=== PATIENT | male | born 1930 | race Caucasian/White ===

== ENCOUNTER 2017-04-24 08:40 | Emergency (ER) | payer MEDICARE, BC ==
[2014-07-23 11:36] VITALS: BMI 21.2
[~2017-04-24 08:40] MED LIST: ASCORBIC ACID500 MG PO; ASPIRIN EC81 M1 PO; COMBIGAN OPHT DR5 ML EACH EYE; COZAAR25 MG PO; ENULOSE10 G/15 ML PO; FOLIC ACID PO; HYDROCODON-ACE1 EAC7 PO; MIRALAX17 GM PO; NEXIUM40 MG PO; NIFEDIPINE ER30 MG PO; NITROSTAT0.4 MG SL; PRILOSEC PO; ROBAXIN-750750 MG PO; SAW PALMETTO PO; SYSTANE 0.3-0.4%5 ML EACH EYE; TRAVATAN Z2.5 ML EACH EYE; VITAMIN B COMPL1 TAB PO; VITAMIN D3400 UNI1 PO; ZOCOR10 MG PO; ZYRTEC10 MG PO
== END 2017-04-24 11:18 | disposition home or self-care (01) ==
LOC: D.ER 08:40
DX: H11.001 Unspecified pterygium of right eye (principal); H57.13 Ocular pain, bilateral

== ENCOUNTER 2017-12-06 11:09 | Inpatient (IN) | payer MEDICARE, BC ==
[~2017-12-06] VITALS: Ht 170.2 cm; Wt 57.7 kg
--- NOTE | ~2017-12-06 | MORECARE ---
CASE MANAGEMENT DISCHARGE SUMMARY PATIENT: IDRIS BERNAL UNIT: [id number] ADM DATE: 12/06/17 AGE: 87 : 30 SEX: M ROOM/BED: D.210 AUTHOR: CATINA ANDERSON PHYSICIAN: REFERRING PHYSICIAN: MARK PAT MD DATE OF SERVICE: 12/09/17 Discharge Plan Patient Name: IDRIS BERNAL [facility] [facility] 1930 Planned Disposition: Home Anticipated Discharge Date: 12/07/17 Discharge Date: 12/07/2017 Expected LOS: 1 Initial Reviewer: [email or web address] Initial Review Date: 12/09/2017 Generated: 12/09/17 8:30 am Patient Name: IDRIS BERNAL Page [id number] at 0730 All edits/amendments must be made on the electronic document DICTATION DATE: 12/09/17729 MANAGER CITY: [place] 12/09/17729 RPT#: [id number] DC DATE:12/07/17 STATUS: DIS IN [facility] [address] [facility] [address] END OF REPORT
[2017-12-06] MEDS ORDERED: BENTYL10 MG PO (12:14)
[2017-12-06 12:35] LABS: BASOPHILS 0.2 % (0-2); EOSINOPHILS 0.8 % (0-7); HEMATOCRIT 39.9 % (42.0-54.0); HEMOGLOBIN 13.6 g/dL (13.5-17.5); IMMATURE GRANULOCYTES 0.1 % (0-5); LYMPHOCYTES 8.7 % (15-50); MCH 32.8 pg (26.0-34.0); MCHC 34.1 g/dL (31.0-37.0); MCV 96.1 fL (80.0-100.0); MONOCYTES 8.2 % (2-11); PLATELET COUNT 237 10x3/uL (130-400); RBC 4.15 10x6/uL (4.20-6.10); RDW 13.1 % (11.5-14.5); WBC 8.8 10x3/uL (4.8-10.8)
[2017-12-06 12:50] LABS: INR 0.92 (0.85-1.17)
[2017-12-06 12:53] LABS: ALBUMIN 3.6 g/dL (3.4-5.0); ALKALINE PHOSPHATASE 116 U/L (46-116); ALT (SGPT) 25 U/L (10-68); BILIRUBIN - TOTAL 0.44 mg/dL (0.2-1.3); CALC OSMOLALITY 272 mosm/kg (275-300); CALCIUM 9.1 mg/dL (8.5-10.1); CARBON DIOXIDE 32.2 mmol/L (21.0-32.0); CHLORIDE - SERUM 96 mmol/L (98-107); CREATININE - SERUM 0.8 mg/dL (0.6-1.3); GLUCOSE 131 mg/dL (74-106); POTASSIUM - SERUM 4.2 mmol/L (3.5-5.1); PRO BNP 740 pg/mL (0-450); PROTEIN - SERUM 7.7 g/dL (6.4-8.2); SODIUM 134 mmol/L (136-145); UREA NITROGEN 22 mg/dL (7-18); eGFR NON AFRICAN AMERICAN > 90 mL/min (90-120)
[2017-12-06 13:42] VITALS: BMI 19.9
[2017-12-06 16:11] VITALS: BP 125/56
[2017-12-06 16:33] VITALS: Ht 170.2 cm; Wt 57.7 kg
[2017-12-06 18:16] VITALS: BP 125/56
[2017-12-06 19:48] LABS: APPEARANCE CLEAR (CLEAR); BILIRUBIN NEGATIVE (NEGATIVE); COLOR YELLOW (YELLOW); GLUCOSE NEGATIVE (NEGATIVE); KETONE NEGATIVE (NEGATIVE); NITRITE NEGATIVE (NEGATIVE); PROTEIN NEGATIVE (NEGATIVE); SPECIFIC GRAVITY 1.015 (1.005-1.020); UROBILINOGEN NORMAL (NORMAL)
[2017-12-06 20:00] VITALS: BP 122/69
[2017-12-07] VITALS: BP 113/48
[2017-12-07 04:00] VITALS: BP 115/49
[2017-12-07 05:16] LABS: BASOPHILS 0.6 % (0-2); EOSINOPHILS 2.5 % (0-7); HEMATOCRIT 34.6 % (42.0-54.0); HEMOGLOBIN 11.7 g/dL (13.5-17.5); IMMATURE GRANULOCYTES 0.3 % (0-5); LYMPHOCYTES 11.8 % (15-50); MCH 32.1 pg (26.0-34.0); MCHC 33.8 g/dL (31.0-37.0); MCV 95.1 fL (80.0-100.0); MEAN PLATELET VOLUME 9.3 fL (7.4-10.4); MONOCYTES 11.9 % (2-11); NEUTROPHILS 72.9 % (40-80); PLATELET COUNT 219 10x3/uL (130-400); RBC 3.64 10x6/uL (4.20-6.10); RDW 13.1 % (11.5-14.5); WBC 7.1 10x3/uL (4.8-10.8)
[2017-12-07 05:35] LABS: CALC OSMOLALITY 271 mosm/kg (275-300); CALCIUM 8.5 mg/dL (8.5-10.1); CARBON DIOXIDE 30.6 mmol/L (21.0-32.0); CHLORIDE - SERUM 100 mmol/L (98-107); CREATININE - SERUM 0.7 mg/dL (0.6-1.3); GLUCOSE 108 mg/dL (74-106); POTASSIUM - SERUM 3.8 mmol/L (3.5-5.1); SODIUM 135 mmol/L (136-145); eGFR NON AFRICAN AMERICAN > 90 mL/min (90-120)
[2017-12-07 05:56] LABS: UREA NITROGEN 16 mg/dL (7-18)
[2017-12-07 08:35] VITALS: BP 134/59
[2017-12-07 10:42] VITALS: BP 129/61
[2017-12-07 14:56] VITALS: BP 125/57
[2017-12-07] MEDS ORDERED: CLOTRIM ANTIFUN15 GM TOPICAL (15:23)
== END 2017-12-07 18:46 | disposition home or self-care (01) | DRG 607 ==
LOC: D.M2 11:09 → D.SDCHOLD 11:09 → D.M2 11:13
PROVIDERS: Family Medicine; Internal Medicine Nephrology
DX: B35.3 Tinea pedis (principal); L03.116 Cellulitis of left lower limb; L03.115 Cellulitis of right lower limb; I73.9 Peripheral vascular disease, unspecified; I10 Essential (primary) hypertension; E78.5 Hyperlipidemia, unspecified; Z85.118 Personal history of other malignant neoplasm of bronchus and lung; I73.00 Raynaud's syndrome without gangrene

== ENCOUNTER → 2018-04-23 08:00 | Outpatient (CLI) | payer MEDICARE, BC ==
[2017-12-06 16:33] VITALS: BMI 19.9
[~2018-04-23 08:00] MED LIST changes: +BENTYL10 MG PO; +CLOTRIM ANTIFUN15 GM TOPICAL
== END | disposition home or self-care (01) ==
LOC: D.MAMMO 08:00
PROVIDERS: ATTEND Nurse Practitioner Family
DX: N63.42 Unspecified lump in left breast, subareolar (principal)

== ENCOUNTER 2018-05-06 14:34 | Inpatient (IN) | payer MEDICARE, BC ==
[~2018-05-06] VITALS: Ht 170.2 cm; Wt 54.1 kg
[2018-05-06 15:17] LABS: BASOPHILS 0.2 % (0-2); EOSINOPHILS 0.6 % (0-7); HEMATOCRIT 34.9 % (42.0-54.0); HEMOGLOBIN 11.3 g/dL (13.5-17.5); IMMATURE GRANULOCYTES 0.4 % (0-5); LYMPHOCYTES 3.8 % (15-50); MCH 31.9 pg (26.0-34.0); MCHC 32.4 g/dL (31.0-37.0); MCV 98.6 fL (80.0-100.0); MEAN PLATELET VOLUME 8.7 fL (7.4-10.4); MONOCYTES 9.1 % (2-11); NEUTROPHILS 85.9 % (40-80); RBC 3.54 10x6/uL (4.20-6.10); RDW 13.2 % (11.5-14.5); WBC 11.2 10x3/uL (4.8-10.8)
[2018-05-06 15:37] VITALS: BP 153/79
[2018-05-06 15:46] LABS: ALBUMIN 2.3 g/dL (3.4-5.0); ANION GAP 4.3 mmol/L (8-16); BILIRUBIN - TOTAL 0.25 mg/dL (0.2-1.3); CALCIUM 8.8 mg/dL (8.5-10.1); CARBON DIOXIDE 38.2 mmol/L (21.0-32.0); CREATININE - SERUM 1.3 mg/dL (0.6-1.3); POTASSIUM - SERUM 4.5 mmol/L (3.5-5.1); PROTEIN - SERUM 6.8 g/dL (6.4-8.2); TROPONIN-I 0.025 ng/mL (0.000-0.060)
[2018-05-06 15:54] LABS: PLATELET COUNT 413 10x3/uL (130-400)
[2018-05-06 16:37] VITALS: BP 136/52
[2018-05-06 16:47] LABS: APPEARANCE CLEAR (CLEAR); BILIRUBIN NEGATIVE (NEGATIVE); COLOR YELLOW (YELLOW); GLUCOSE NEGATIVE (NEGATIVE); KETONE NEGATIVE (NEGATIVE); NITRITE NEGATIVE (NEGATIVE); PROTEIN TRACE mg/dL (NEGATIVE); UROBILINOGEN NORMAL (NORMAL)
[2018-05-06 16:55] LABS: BACTERIA MODERATE /hpf (NONE SEEN); RED CELLS - URINE OCC /hpf (0-5); WHITE CELLS - URINE 0-5 /hpf (0-5)
[2018-05-06 17:37] VITALS: BP 141/55
--- NOTE | 2018-05-06 19:00 | NUR ---
ASSUMED CARE AT THIS TIME. REPORT CALLED TO FLOOR BY PREVIOUS NURSE. IN REPORT WAS TOLD WAITING ON BED TO BE CLEANED.
--- NOTE | 2018-05-06 19:28 | NUR ---
PT AMBULATED TO RESTROOM WITH CAREGIVER WHO WS AT BEDSIDE. PT AMBULATES WITH CANE. DENIES PAIN OR NEEDS AT THIS TIME.
--- NOTE | 2018-05-06 20:13 | NUR ---
ADMITED AT THIS TIME BED PUT IN LOW POSITION SRX2 AND CALL LIGHT PROVIDED PT REFUSING TO REMOVE CLOTHING AT THIS TME IV SL TO RT WRIST LCTA SKIN NOT FULLY OBSERVED. FAMILY IS WITH PT AT THIOS TIME
--- NOTE | 2018-05-06 21:42 | NUR ---
96.5 136/58 76 20 97% ON RA...RESP NONLABORED
[2018-05-06 23:55] VITALS: BP 136/58
[2018-05-07 03:36] VITALS: BP 126/70; BMI 22.7
[2018-05-07 03:55] VITALS: BP 150/74
--- NOTE | 2018-05-07 04:20 | NUR ---
PATIENT RESTING COMFORTABLY IN BED. RESPIRATIONS ARE EVEN AND UNLABORED. NO S/S OF DISTRESS. NO C/O PAIN. CALL LIGHT WITHIN REACH. WILL CPOC.
[2018-05-07 06:51] LABS: BASOPHILS 0.1 % (0-2); EOSINOPHILS 0.9 % (0-7); HEMATOCRIT 29.2 % (42.0-54.0); HEMOGLOBIN 9.5 g/dL (13.5-17.5); IMMATURE GRANULOCYTES 0.5 % (0-5); LYMPHOCYTES 5.8 % (15-50); MCH 31.8 pg (26.0-34.0); MCHC 32.5 g/dL (31.0-37.0); MCV 97.7 fL (80.0-100.0); MEAN PLATELET VOLUME 8.7 fL (7.4-10.4); MONOCYTES 7.9 % (2-11); NEUTROPHILS 84.8 % (40-80); PLATELET COUNT 354 10x3/uL (130-400); RBC 2.99 10x6/uL (4.20-6.10); WBC 9.9 10x3/uL (4.8-10.8)
[2018-05-07 07:12] LABS: ALBUMIN 1.8 g/dL (3.4-5.0); ALKALINE PHOSPHATASE 80 U/L (46-116); BILIRUBIN - TOTAL 0.27 mg/dL (0.2-1.3); CARBON DIOXIDE 33.7 mmol/L (21.0-32.0); CHLORIDE - SERUM 100 mmol/L (98-107); PROTEIN - SERUM 5.5 g/dL (6.4-8.2); SODIUM 137 mmol/L (136-145); eGFR NON AFRICAN AMERICAN 75 mL/min (90-120)
[2018-05-07 07:13] LABS: ALT (SGPT) 15 U/L (10-68); CALC OSMOLALITY 276 mosm/kg (275-300); GLUCOSE 105 mg/dL (74-106); UREA NITROGEN 22 mg/dL (7-18)
--- NOTE | 2018-05-07 07:48 | NUR ---
REPORT RECEIVED. WILL CONTINUE WITH POC. PT CURRENTLY LYING SEMI FOWLERS. CALL LIGHT W/I REACH. PT IS AAO BUT ORUTSARARMIUT. RR EVEN AND UNLABORED ON RA. NS INFUSING @100ML/HR VIA R.FOR PIV. PT DENIES ANY NEEDS AT THIS TIME. NO S/S OF DISTRESS NOTED. WILL CTM.
--- NOTE | 2018-05-07 10:19 | NUR ---
AM MEDICATIONS ADMINISTERED. PT ASSISTED WITH BREAKFAST. FAMILY AT BEDSIDE. PT DENIES ANY NEEDS. NO S/S OF DISTRESS NOTED. WILL CTM.
[2018-05-07 10:23] VITALS: BP 138/71
--- NOTE | 2018-05-07 12:08 | NUR ---
PREVIOUS PIV INFILTRATED. RESITED PIV TO THE LEFT FOREARM 22GA X1 ATTEMPT. PT TOLERATED WELL. FLUSHED WITH 10CC NS TO CONFIRM PATENCY. PT COMPLAINS OF N/V. WILL ADMINISTER ZOFRAN. WILL CTM. REMOVED PREVIOUS PIV WITH CATHETER TIP FULLY INTACT.
--- NOTE | 2018-05-07 12:21 | NUR ---
PT ASSISTED TO BATHROOM WHERE PT HAD LARGE EPISODE OF DIARRHEA. PT ASSISTED BACK TO BED. WILL CTM.
[2018-05-07 12:24] LABS: % SATURATION 56 % (15-55); IRON 84 ug/dl (35-150); TOTAL IRON BIND CAPACITY 150 ug/dl (260-445); UNSAT IRON BIND CAPACITY 66 ug/dl (150-375)
[2018-05-07 13:59] VITALS: Ht 170.2 cm; Wt 54.1 kg
[2018-05-07 14:36] VITALS: BP 135/81
--- NOTE | 2018-05-07 14:41 | NUR ---
PT ASSISTED TO AND FROM BATHROOM. PT CLEANED AND NEW BRIEF APPLIED. NOTICED STAGE 2 BREAKDOWN ON SACRUM. SMALL 1X1 SKIN TEAR ON SACRUM. NO DRAINAGE. NONBLANCHABLE. CLEANED WOUND WITH CLEANSER, APPLIED BUTT PASTE, AND APPLIED SMALL SACRAL DRESSING. PT NOW LYING SEMI FOWLERS. CALL LIGHT W/I REACH. FAMILY AT BEDSIDE. WILL CTM.
--- NOTE | 2018-05-07 15:10 | NUR ---
I have reviewed this patient and I concur with the Shift Assessment completed by the Licensed Practical Nurse today this shift.
[2018-05-07 16:59] VITALS: BP 137/76
--- NOTE | 2018-05-07 19:10 | NUR ---
AT REST WITH EYES CLOSED RESIDENT IS STILL FULLY DRESSED IN STREET CLOTHES. LCTA NO WHEEZES PT IS ON RA. TELEMETRY CHECKED AND SR AT THIS TIMESR X2 BEED LOW WITH CALL LIGHT IN REACH
[2018-05-07 20:32] VITALS: BP 101/47
[2018-05-08 00:04] VITALS: BP 107/42
[2018-05-08 05:32] LABS: BASOPHILS 0.1 % (0-2); EOSINOPHILS 0.8 % (0-7); HEMATOCRIT 30.6 % (42.0-54.0); HEMOGLOBIN 9.9 g/dL (13.5-17.5); IMMATURE GRANULOCYTES 0.8 % (0-5); LYMPHOCYTES 7.5 % (15-50); MCH 31.2 pg (26.0-34.0); MCHC 32.4 g/dL (31.0-37.0); MCV 96.5 fL (80.0-100.0); MEAN PLATELET VOLUME 8.5 fL (7.4-10.4); MONOCYTES 7.3 % (2-11); NEUTROPHILS 83.5 % (40-80); PLATELET COUNT 297 10x3/uL (130-400); RBC 3.17 10x6/uL (4.20-6.10)
[2018-05-08 05:49] LABS: CALC OSMOLALITY 272 mosm/kg (275-300); CALCIUM 7.9 mg/dL (8.5-10.1); CARBON DIOXIDE 31.3 mmol/L (21.0-32.0); CHLORIDE - SERUM 100 mmol/L (98-107); GLUCOSE 109 mg/dL (74-106); POTASSIUM - SERUM 4.3 mmol/L (3.5-5.1); SODIUM 135 mmol/L (136-145); UREA NITROGEN 18 mg/dL (7-18); eGFR NON AFRICAN AMERICAN 75 mL/min (90-120)
[2018-05-08 06:13] VITALS: BP 121/74
--- NOTE | 2018-05-08 07:30 | NUR ---
A/A/OX2 TO PERSON AND PLACE. DENIES ANY PAIN OR DISCOMFORT AND NO REQUESTS VOICED. ASSESSMENT COMPLETED. BED IN LOW POSITION WITH WHEELS LOCKED. SIDERAILS UP X 2 AND CALL LIGHT IN REACH. WILL CONTINUE POC.
[2018-05-08 07:53] VITALS: BP 103/41
[2018-05-08 10:22] LABS: FOLATE (FOLIC ACID) - SERUM 18.4 ng/mL (>3.0)
[2018-05-08 11:18] VITALS: BP 111/59
[2018-05-08 15:44] VITALS: BP 120/59
--- NOTE | 2018-05-08 18:11 | NUR ---
AGREE WITH INVESTMENT ACCOUNTING CLERK ASSESSMENT
--- NOTE | 2018-05-08 19:15 | NUR ---
AT REST WITH EYS CLOSED BUT EASILY AROUSES. BED LOW WITH BED ALARM ON. SRX2 AND CALL LIGHT IS IN REACH. IV TO LEFT FA WITH NS AT 100...NO REDNESS OR EDEMA..FULL BODY EXAM NOT DOWN
[2018-05-08 20:00] VITALS: BP 93/44
--- NOTE | 2018-05-08 22:15 | NUR ---
ASSISTED UP TO THE REST ROOM. TOLERATED WELL BACK TO BED WIHOUT INCIDENT
[2018-05-09] VITALS: BP 94/48
[2018-05-09 04:00] VITALS: BP 90/44
[2018-05-09 06:24] LABS: BASOPHILS 0.1 % (0-2); EOSINOPHILS 0.9 % (0-7); HEMATOCRIT 30.9 % (42.0-54.0); HEMOGLOBIN 10.1 g/dL (13.5-17.5); IMMATURE GRANULOCYTES 0.6 % (0-5); LYMPHOCYTES 5.2 % (15-50); MCH 31.7 pg (26.0-34.0); MCHC 32.7 g/dL (31.0-37.0); MCV 96.9 fL (80.0-100.0); MEAN PLATELET VOLUME 8.7 fL (7.4-10.4); MONOCYTES 7.5 % (2-11); NEUTROPHILS 85.7 % (40-80); PLATELET COUNT 339 10x3/uL (130-400); RBC 3.19 10x6/uL (4.20-6.10); RDW 13.1 % (11.5-14.5); WBC 11.8 10x3/uL (4.8-10.8)
[2018-05-09 06:59] LABS: ANION GAP 6.2 mmol/L (8-16); CALCIUM 7.8 mg/dL (8.5-10.1); CARBON DIOXIDE 31.2 mmol/L (21.0-32.0); CREATININE - SERUM 1.1 mg/dL (0.6-1.3); POTASSIUM - SERUM 4.4 mmol/L (3.5-5.1)
[2018-05-09 08:00] VITALS: BP 120/72
[2018-05-09 12:00] VITALS: BP 112/55
--- NOTE | 2018-05-09 13:40 | NUR ---
Nutrition follow-up: Diet: Regular PO intake ~25% average of last 3 meals Labs reviewed Wt: 112 Pt on Megace PO intake continues to be poor; may need to consider PEG tube placement and nutrition support started. RDN following.
--- NOTE | 2018-05-09 14:32 | NUR ---
Rehab Prescreening Consult recieved and the chart was reviewed. He has ambulated 250 feet with PT therefore he is to high level for the ARU. Discussed with the CM Brayan Garcia. Caitlin Patel RN Clinical Liaison, Rehab
--- NOTE | 2018-05-09 15:49 | MORECARE ---
CASE MANAGEMENT DISCHARGE SUMMARY PATIENT: IDRIS BERNAL UNIT: [id number] ADM DATE: 05/06/18 AGE: 88 : 30 SEX: M ROOM/BED: D.2137 AUTHOR: CATINA ANDERSON PHYSICIAN: REFERRING PHYSICIAN: EDI ANN MD DATE OF SERVICE: 05/09/18 Discharge Plan Patient Name: IDRIS BERNAL Facility: [facility]:[place] : 1930 Planned Disposition: Home with Home Health Anticipated Discharge Date: Discharge Date: Expected LOS: Initial Reviewer: [email or web address] Initial Review Date: 05/09/2018 Generated: 05/09/18 4:48 pm DCPIA - Discharge Planning Initial Assessment Updated by [email or web address]: Gurvinder Garcia on 05/09/18 3:43 pm * Is the patient Alert and Oriented? Yes * How many steps to enter\exit or inside your home? * PCP DR. PAT * Pharmacy [facility] * Preadmission Environment Home Alone * ADLs Partial Dependent * Partial ADLs (Assistance needed) Bathing * Equipment Cane Walker * Other Equipment NO MEDICAL EQUIPMENT PROVIDER PREFERENCE * List name and contact numbers for known caregivers / representatives who currently or will assist patient after discharge: MENDY GEORGES, KAILEY CAUSEY, * Verbal permission to speak to the caregivers and representatives has been obtained from the patient. Yes * Community resources currently utilized Private Duty Care * Please name any agencies selected above. [facility], AT LEAST THREE DAYS PER WEEK * Additional services required to return to the preadmission environment? Yes * Can the patient safely return to the preadmission environment? Yes * Has this patient been hospitalized within the prior 30 days at any hospital? No Patient Name: IDRIS BERNAL Page [id number] at 1540 All edits/amendments must be made on the electronic document DICTATION DATE: 05/09/181547 MOTORCYCLE ENGINE ASSEMBLER: [place] 05/09/18 1548 RPT#: [id number] DC DATE: STATUS: ADM IN [facility] [address] [place] [address] END OF REPORT
--- NOTE | 2018-05-09 16:08 | MORECARE ---
CASE MANAGEMENT DISCHARGE SUMMARY PATIENT: IDRIS BERNAL UNIT: [id number] ADM DATE: 05/06/18 AGE: 88 : 30 SEX: M ROOM/BED: D.8439 AUTHOR: MONICA,DOC PHYSICIAN: REFERRING PHYSICIAN: EDI ANN MD DATE OF SERVICE: 05/09/18 Discharge Plan Patient Name: IDRIS BERNAL Facility: [facility]:[place] : 1930 Planned Disposition: Home with Home Health Anticipated Discharge Date: Discharge Date: Expected LOS: Initial Reviewer: [email or web address] Initial Review Date: 05/09/2018 Generated: 05/09/18 5:08 pm Comments DCP- Discharge Planning Updated by [email or web address]: Gurvinder Garcia on 05/09/18 3:[address] Patient Name: IDRIS BERNAL Admission Status: ER Accout number: [id number] Admission Date: 05-06-2018 : 1930 Admission Diagnosis:SHORTNESS OF BREATH Attending: EDI ANN Current LOS: 3 Anticipated DC Date: Planned Disposition: Home with Home Health OR RESIDENTIAL FACILITY Primary Insurance: MEDICARE A & B PLANNED EXTERNAL PROVIDER: TO BE DETERMINED Discharge Planning Comments: CM RECEIVED INPATIENT REHAB PRESCREENING ORDER, SPOKE TO VANDANA OF INPATIENT REHAB WHO INFORMED CM THAT PT IS TOO HIGH FUNCTIONING AND THEY WILL NOT ACCEPT. CM MET WITH PT IN ROOM TO DISCUSS DISCHARGE PLANNING AND NEEDS. PT REPORTS LIVING AT HOME ALONE AND INDEPENDENTLY EXCEPT FOR BATHING FOR WHICH HE HAS CAREGIVERS THREE DAYS PER WEEK THAT ARE PAID PRIVATELY. PT HAS WALKER AND CANE WITH NO MEDICAL EQUIPMENT PROVIDER PREFERNENCE. CM DISCUSSED AVAILABILITY OF HOME HEALTH, RESIDENTIAL REHAB SERVICES AND MEDICAL EQUIPMENT. PT REPORTS HE WANTS TO GO HOME BUT MAY CONSIDER RESIDENTIAL HE REPORTS STILL BEING TOO WEAK TODAY TO GO HOME. PT WANTS CM TO TALK TO MENDY, HIS SON AND THEY WILL DISCUSS REHAB NEEDS AND LET CM KNOW. PT REPORTS HIS SON OR FRIEND WILL PICK HIM UP FOR DISCHARGE HOME. IMPORTANT MESSAGE FROM MEDICARE PROVIDED AND EXPLAINED. CM PROVIDED AND DISCUSSED PROVIDER LISTINGS FOR RESIDENTIAL FACILITIES AND HOME HEALTH. CM CALLED MENDY BERNAL AT [phone], SPOKE TO MARCELLA MAYEN WHO INFORMED CM THAT HE THINKS PT WILL NEED REHAB AND WILL HAVE MENDY CALL CM AND THEY WILL PROBABLY BE BACK TO HOSPITAL THIS AFTERNOON TO DISCUSS DISCHARGE NEEDS AND REHAB. CM WAITING PT AND FAMILY TO DECIDE ON RESIDENTIAL REHAB OR HOME HEALTH SERVICES. PT DOES NOT QUALIFY FOR INPATIENT REHAB SERVICES. Ceramic Painter: Gurvinder Garcia DCPIA - Discharge Planning Initial Assessment Updated by ZAN: Gurvinder Garcia on 05/09/18 3:43 pm * Is the patient Alert and Oriented? Yes * How many steps to enter\exit or inside your home? * PCP DR. PAT * Pharmacy [facility] ON [address] * Preadmission Environment Home Alone * ADLs Partial Dependent * Partial ADLs (Assistance needed) Bathing * Equipment Cane Walker * Other Equipment NO MEDICAL EQUIPMENT PROVIDER PREFERENCE * List name and contact numbers for known caregivers / representatives who currently or will assist patient after discharge: MENDY GEORGES, KAILEY CAUSEY, * Verbal permission to speak to the caregivers and representatives has been obtained from the patient. Yes * Community resources currently utilized Private Duty Care * Please name any agencies selected above. [facility], AT LEAST THREE DAYS PER WEEK * Additional services required to return to the preadmission environment? Yes * Can the patient safely return to the preadmission environment? Yes * Has this patient been hospitalized within the prior 30 days at any hospital? No Coverage Notice Reviewer: [id number] - Gurvinder Garcia Notice Issued Date-Time: 05/09/2018 15:15 Notice Type: IM Discharge Notice Notice Delivered To: Patient Relationship to Patient: Education Administrator Name: Delivery Method: HAND - Hand Delivered Margo Days: Prior Verbal Notification: Recipient Understood Notice: Yes Recipient Signature: Yes Med Rec Note Co-signed by Attending: Coverage Notice Comment: Last DP export: 05/09/18 2:49 p Patient Name: IDRIS BERNAL Page [id number] at 1608 All edits/amendments must be made on the electronic document DICTATION DATE: 05/09/181607 NEUROSURGERY PHYSICIAN: [place] 05/09/181607 RPT#: [id number] DC DATE: STATUS: ADM IN [facility] [address] [place] [address] END OF REPORT
--- NOTE | 2018-05-09 16:31 | MORECARE ---
CASE MANAGEMENT DISCHARGE SUMMARY PATIENT: IDRIS BERNAL UNIT: [id number] ADM DATE: 05/06/18 AGE: 88 : 30 SEX: M ROOM/BED: D.8835 AUTHOR: MONICA,DOC PHYSICIAN: REFERRING PHYSICIAN: EDI ANN MD DATE OF SERVICE: 05/09/18 Discharge Plan Patient Name: IDRIS BERNAL Facility: [facility]:[place] : 1930 Planned Disposition: Alf Facility Anticipated Discharge Date: Discharge Date: Expected LOS: Initial Reviewer: [email or web address] Initial Review Date: 05/09/2018 Generated: 05/09/18 5:30 pm Comments DCP- Discharge Planning Updated by [email or web address]: Gurvinder Garcia on 05/09/18 3:[address] Patient Name: IDRIS BERNAL Admission Status: ER Accout number: [id number] Admission Date: 05-06-2018 : 1930 Admission Diagnosis:SHORTNESS OF BREATH Attending: EDI ANN Current LOS: 3 Anticipated DC Date: Planned Disposition: Home with Home Health OR [facility] FACILITY Primary Insurance: MEDICARE A & B PLANNED EXTERNAL PROVIDER: TO BE DETERMINED Discharge Planning Comments: CM RECEIVED INPATIENT REHAB PRESCREENING ORDER, SPOKE TO VANDANA OF INPATIENT REHAB WHO INFORMED CM THAT PT IS TOO HIGH FUNCTIONING AND THEY WILL NOT ACCEPT. CM MET WITH PT IN ROOM TO DISCUSS DISCHARGE PLANNING AND NEEDS. PT REPORTS LIVING AT HOME ALONE AND INDEPENDENTLY EXCEPT FOR BATHING FOR WHICH HE HAS CAREGIVERS THREE DAYS PER WEEK THAT ARE PAID PRIVATELY. PT HAS WALKER AND CANE WITH NO MEDICAL EQUIPMENT PROVIDER PREFERNENCE. CM DISCUSSED AVAILABILITY OF HOME HEALTH, [facility] REHAB SERVICES AND MEDICAL EQUIPMENT. PT REPORTS HE WANTS TO GO HOME BUT MAY CONSIDER [facility] HE REPORTS STILL BEING TOO WEAK TODAY TO GO HOME. PT WANTS CM TO TALK TO MENDY, HIS SON AND THEY WILL DISCUSS REHAB NEEDS AND LET CM KNOW. PT REPORTS HIS SON OR FRIEND WILL PICK HIM UP FOR DISCHARGE HOME. IMPORTANT MESSAGE FROM MEDICARE PROVIDED AND EXPLAINED. CM PROVIDED AND DISCUSSED PROVIDER LISTINGS FOR [facility] FACILITIES AND HOME HEALTH. CM CALLED MENDY BERNAL AT [phone], SPOKE TO MARCELLA MAYEN WHO INFORMED CM THAT HE THINKS PT WILL NEED REHAB AND WILL HAVE MENDY CALL CM AND THEY WILL PROBABLY BE BACK TO HOSPITAL THIS AFTERNOON TO DISCUSS DISCHARGE NEEDS AND REHAB. CM WAITING PT AND FAMILY TO DECIDE ON [facility] REHAB OR HOME HEALTH SERVICES. PT DOES NOT QUALIFY FOR INPATIENT REHAB SERVICES. Control Systems Engineer: Gurvinder Garcia DCPIA - Discharge Planning Initial Assessment Updated by [email or web address]: Gurvinder Garcia on 05/09/18 3:43 pm * Is the patient Alert and Oriented? Yes * How many steps to enter\exit or inside your home? * PCP DR. PAT * Pharmacy [facility] ON [address] * Preadmission Environment Home Alone * ADLs Partial Dependent * Partial ADLs (Assistance needed) Bathing * Equipment Cane Walker * Other Equipment NO MEDICAL EQUIPMENT PROVIDER PREFERENCE * List name and contact numbers for known caregivers / representatives who currently or will assist patient after discharge: MENDY GEORGES, KAILEY CAUSEY, * Verbal permission to speak to the caregivers and representatives has been obtained from the patient. Yes * Community resources currently utilized Private Duty Care * Please name any agencies selected above. [facility], AT LEAST THREE DAYS PER WEEK * Additional services required to return to the preadmission environment? Yes * Can the patient safely return to the preadmission environment? Yes * Has this patient been hospitalized within the prior 30 days at any hospital? No External Providers External Provider: [facility] Next Contact Date: 05/09/2018 Service Request Date: Service Type: Resolution: Reviewer: Comments: Coverage Notice Reviewer: [id number] - Gurvinder Garcia Notice Issued Date-Time: 05/09/2018 15:15 Notice Type: IM Discharge Notice Notice Delivered To: Patient Relationship to Patient: Bin Cleaner Name: Delivery Method: HAND - Hand Delivered Margo Days: Prior Verbal Notification: Recipient Understood Notice: Yes Recipient Signature: Yes Med Rec Note Co-signed by Attending: Coverage Notice Comment: Last DP export: 05/09/18 3:08 p Patient Name: IDRIS BERNAL Page [id number] at 1631 All edits/amendments must be made on the electronic document DICTATION DATE: 05/09/18 1630 SENIOR SUPPLIER QUALITY ENGINEER: [place] 05/09/18 1630 RPT#: [id number] DC DATE: STATUS: ADM IN [facility] [address] [facility] [place] [address] END OF REPORT
[2018-05-09 16:36] VITALS: BP 129/54
--- NOTE | 2018-05-09 16:39 | MORECARE ---
CASE MANAGEMENT DISCHARGE SUMMARY PATIENT: IDRIS BERNAL UNIT: [id number] ADM DATE: 05/06/18 AGE: 88 : 30 SEX: M ROOM/BED: D.7071 AUTHOR: MONICA,DOC PHYSICIAN: REFERRING PHYSICIAN: EDI ANN MD DATE OF SERVICE: 05/09/18 Discharge Plan Patient Name: IDRIS BERNAL Facility: [facility]:[place] : 1930 Planned Disposition: Jail Facility Anticipated Discharge Date: Discharge Date: Expected LOS: Initial Reviewer: [email or web address] Initial Review Date: 05/09/2018 Generated: 05/09/18 5:39 pm Comments DCP- Discharge Planning Updated by [email or web address]: Gurvinder Garcia on 05/09/18 3:[address] Patient Name: IDRIS BERNAL Admission Status: ER Accout number: [id number] Admission Date: 05-06-2018 : 1930 Admission Diagnosis:SHORTNESS OF BREATH Attending: EDI ANN Current LOS: 3 Anticipated DC Date: Planned Disposition: Home with Home Health OR [facility] FAC[facility] Primary Insurance: MEDICARE A & B PLANNED EXTERNAL PROVIDER: TO BE DETERMINED Discharge Planning Comments: CM RECEIVED INPATIENT REHAB PRESCREENING ORDER, SPOKE TO VANDANA OF INPATIENT REHAB WHO INFORMED CM THAT PT IS TOO HIGH FUNCTIONING AND THEY WILL NOT ACCEPT. CM MET WITH PT IN ROOM TO DISCUSS DISCHARGE PLANNING AND NEEDS. PT REPORTS LIVING AT HOME ALONE AND INDEPENDENTLY EXCEPT FOR BATHING FOR WHICH HE HAS CAREGIVERS THREE DAYS PER WEEK THAT ARE PAID PRIVATELY. PT HAS WALKER AND CANE WITH NO MEDICAL EQUIPMENT PROVIDER PREFERNENCE. CM DISCUSSED AVAILABILITY OF HOME HEALTH, [facility] REHAB SERVICES AND MEDICAL EQUIPMENT. PT REPORTS HE WANTS TO GO HOME BUT MAY CONSIDER [facility] HE REPORTS STILL BEING TOO WEAK TODAY TO GO HOME. PT WANTS CM TO TALK TO MENDY, HIS SON AND THEY WILL DISCUSS REHAB NEEDS AND LET CM KNOW. PT REPORTS HIS SON OR FRIEND WILL PICK HIM UP FOR DISCHARGE HOME. IMPORTANT MESSAGE FROM MEDICARE PROVIDED AND EXPLAINED. CM PROVIDED AND DISCUSSED PROVIDER LISTINGS FOR [facility] FACILITIES AND HOME HEALTH. CM CALLED MENDY BERNAL AT [phone], SPOKE TO MARCELLA MAYEN WHO INFORMED CM THAT HE THINKS PT WILL NEED REHAB AND WILL HAVE MENDY CALL CM AND THEY WILL PROBABLY BE BACK TO HOSPITAL THIS AFTERNOON TO DISCUSS DISCHARGE NEEDS AND REHAB. CM WAITING PT AND FAMILY TO DECIDE ON [facility] REHAB OR HOME HEALTH SERVICES. PT DOES NOT QUALIFY FOR INPATIENT REHAB SERVICES. Clamp Jig Assembler: Gurvinder Garcia DCPIA - Discharge Planning Initial Assessment Updated by ZAN: Gurvinder Garcia on 05/09/18 4:37 pm * Is the patient Alert and Oriented? Yes * How many steps to enter\exit or inside your home? * PCP DR. PAT * Pharmacy [facility] ON [address] * Preadmission Environment Home Alone * ADLs Partial Dependent * Partial ADLs (Assistance needed) Bathing * Equipment Cane Walker * Other Equipment NO MEDICAL EQUIPMENT PROVIDER PREFERENCE * List name and contact numbers for known caregivers / representatives who currently or will assist patient after discharge: MENDY GEORGES, KAILEY CAUSEY, * Verbal permission to speak to the caregivers and representatives has been obtained from the patient. Yes * Community resources currently utilized Private Duty Care * Please name any agencies selected above. [facility], AT LEAST THREE DAYS PER WEEK * Additional services required to return to the preadmission environment? Yes * Can the patient safely return to the preadmission environment? Yes * Has this patient been hospitalized within the prior 30 days at any hospital? No Coverage Notice Reviewer: [id number] Garcia Notice Issued Date-Time: 05/09/2018 15:15 Notice Type: IM Discharge Notice Notice Delivered To: Patient Relationship to Patient: Intelligence Officer Name: Delivery Method: HAND - Hand Delivered Margo Days: Prior Verbal Notification: Recipient Understood Notice: Yes Recipient Signature: Yes Med Rec Note Co-signed by Attending: Coverage Notice Comment: Reviewer: [email or web address] Eliecer Garcia Notice Issued Date-Time: 05/09/2018 16:25 Notice Type: IM Discharge Notice Notice Delivered To: Family Member Relationship to Patient: Son Intelligence Officer Name: MENDY BERNAL Delivery Method: HAND - Hand Delivered Margo Days: Prior Verbal Notification: Recipient Understood Notice: Yes Recipient Signature: Yes Med Rec Note Co-signed by Attending: Coverage Notice Comment: [facility] Last DP export: 05/09/18 3:30 p Patient Name: IDRIS BERNAL Page [id number] at 1639 All edits/amendments must be made on the electronic document DICTATION DATE: 05/09/181637 ENTRY LEVEL PROJECT COORDINATOR: [place] 05/09/181637 RPT#: [id number] DC DATE: STATUS: ADM IN [facility] [address] [place] [address] END OF REPORT
--- NOTE | 2018-05-09 16:48 | MORECARE ---
CASE MANAGEMENT DISCHARGE SUMMARY PATIENT: IDRIS BERNAL UNIT: [id number] ADM DATE: 05/06/18 AGE: 88 : 30 SEX: M ROOM/BED: D.8030 AUTHOR: MONICA,DOC PHYSICIAN: REFERRING PHYSICIAN: EDI ANN MD DATE OF SERVICE: 05/09/18 Discharge Plan Patient Name: IDRIS BERNAL Facility: [facility]:[place] : 1930 Planned Disposition: Fdc Facility Anticipated Discharge Date: Discharge Date: Expected LOS: Initial Reviewer: [id number] Initial Review Date: 05/09/2018 Generated: 05/09/18 5:48 pm Comments DCP- Discharge Planning Updated by [id number]: Gurvinder Douglas on 05/09/18 3:[address] Patient Name: IDRIS BERNAL Admission Status: ER Accout number: [id number] Admission Date: 05-06-2018 : 1930 Admission Diagnosis:SHORTNESS OF BREATH Attending: EDI ANN Current LOS: 3 Anticipated DC Date: Planned Disposition: Home with Home Health OR PENITENTIARY FACILITY Primary Insurance: MEDICARE A & B PLANNED EXTERNAL PROVIDER: TO BE DETERMINED Discharge Planning Comments: CM RECEIVED INPATIENT REHAB PRESCREENING ORDER, SPOKE TO VANDANA OF INPATIENT REHAB WHO INFORMED CM THAT PT IS TOO HIGH FUNCTIONING AND THEY WILL NOT ACCEPT. CM MET WITH PT IN ROOM TO DISCUSS DISCHARGE PLANNING AND NEEDS. PT REPORTS LIVING AT HOME ALONE AND INDEPENDENTLY EXCEPT FOR BATHING FOR WHICH HE HAS CAREGIVERS THREE DAYS PER WEEK THAT ARE PAID PRIVATELY. PT HAS WALKER AND CANE WITH NO MEDICAL EQUIPMENT PROVIDER PREFERNENCE. CM DISCUSSED AVAILABILITY OF HOME HEALTH, PENITENTIARY REHAB SERVICES AND MEDICAL EQUIPMENT. PT REPORTS HE WANTS TO GO HOME BUT MAY CONSIDER PENITENTIARY HE REPORTS STILL BEING TOO WEAK TODAY TO GO HOME. PT WANTS CM TO TALK TO MENDY, HIS SON AND THEY WILL DISCUSS REHAB NEEDS AND LET CM KNOW. PT REPORTS HIS SON OR FRIEND WILL PICK HIM UP FOR DISCHARGE HOME. IMPORTANT MESSAGE FROM MEDICARE PROVIDED AND EXPLAINED. CM PROVIDED AND DISCUSSED PROVIDER LISTINGS FOR PENITENTIARY FACILITIES AND HOME HEALTH. CM CALLED MENDY BERNAL AT [phone], SPOKE TO MARCELLA MAYEN WHO INFORMED CM THAT HE THINKS PT WILL NEED REHAB AND WILL HAVE MENDY CALL CM AND THEY WILL PROBABLY BE BACK TO HOSPITAL THIS AFTERNOON TO DISCUSS DISCHARGE NEEDS AND REHAB. CM WAITING PT AND FAMILY TO DECIDE ON PENITENTIARY REHAB OR HOME HEALTH SERVICES. PT DOES NOT QUALIFY FOR INPATIENT REHAB SERVICES. Facilities Flight Check Pilot: Gurvinder Douglas Appended by Gurvinder Douglas on 05/09/2018 16:40 CDT: CM RECEIVED CALL FROM MENDY BERNAL, PT'S SON, , DISCUSSED REHAB AND HOME HEALTH OPTIONS AND PROVIDERS. MENDY WOULD LIKE PT REFERRED TO [facility] WHERE DR. PAT, PT'S PRIMARY CARE DOCTOR, IS THE QUALITY LIAISON. FAMILY FEELS PT IS WEAK AND NEEDS REHAB PRIOR TO RETURN HOME. CHOICE LETTER COMPLETED. CM NOTIFIED PT WHO IS IN AGREEMENT WITH REHAB REFERRAL. CM CALLED [facility], , SPOKE TO [facility] WHO WILL SCREEN FOR REHAB ADMISSION. CM FAXED REFERRAL TO [facility] AT [phone]. CM WAITING ADMISSION DETERMINATION FROM [facility] FOR MEDICARE REHAB BED ADMISSION. GURVINDER DOUGLAS, CASE MANAGEMENT DCPIA - Discharge Planning Initial Assessment Updated by [id number]: Gurvinder Douglas on 05/09/18 4:37 pm * Is the patient Alert and Oriented? Yes * How many steps to enter\exit or inside your home? * PCP DR. PAT * Pharmacy [facility] [address] * Preadmission Environment Home Alone * ADLs Partial Dependent * Partial ADLs (Assistance needed) Bathing * Equipment Cane Walker * Other Equipment NO MEDICAL EQUIPMENT PROVIDER PREFERENCE * List name and contact numbers for known caregivers / representatives who currently or will assist patient after discharge: MENDY GEORGES, MARCELLA FAHEEMKAILEY, * Verbal permission to speak to the caregivers and representatives has been obtained from the patient. Yes * Community resources currently utilized Private Duty Care * Please name any agencies selected above. [facility], AT LEAST THREE DAYS PER WEEK * Additional services required to return to the preadmission environment? Yes * Can the patient safely return to the preadmission environment? Yes * Has this patient been hospitalized within the prior 30 days at any hospital? No Coverage Notice Reviewer: [id number] - Gurvinder Douglas Notice Issued Date-Time: 05/09/2018 15:15 Notice Type: IM Discharge Notice Notice Delivered To: Patient Relationship to Patient: Skills Auditor Name: Delivery Method: HAND - Hand Delivered Margo Days: Prior Verbal Notification: Recipient Understood Notice: Yes Recipient Signature: Yes Med Rec Note Co-signed by Attending: Coverage Notice Comment: Reviewer: [id number] Eliecer Douglas Notice Issued Date-Time: 05/09/2018 16:25 Notice Type: IM Discharge Notice Notice Delivered To: Family Member Relationship to Patient: Son Skills Auditor Name: MENDY BERNAL Delivery Method: HAND - Hand Delivered Margo Days: Prior Verbal Notification: Recipient Understood Notice: Yes Recipient Signature: Yes Med Rec Note Co-signed by Attending: Coverage Notice Comment: [facility] Last DP export: 05/09/18 3:39 p Patient Name: IDRIS BERNAL Page [id number] at 1648 All edits/amendments must be made on the electronic document DICTATION DATE: 05/09/181647 LINE MAINTAINER SECTION: [place] 05/09/181647 RPT#: [id number] [place] DATE: STATUS: ADM IN [facility] [address] [place] [address] END OF REPORT
--- NOTE | 2018-05-09 17:05 | MORECARE ---
CASE MANAGEMENT DISCHARGE SUMMARY PATIENT: IDRIS BRENAL UNIT: [id number] ADM DATE: 05/06/18 AGE: 88 : 30 SEX: M ROOM/BED: D.8791 AUTHOR: MONICA,DOC PHYSICIAN: REFERRING PHYSICIAN: EDI ANN MD DATE OF SERVICE: 05/09/18 Discharge Plan Patient Name: IDRIS BERNAL Facility: [facility]:[place] : 1930 Planned Disposition: Fpc Facility Anticipated Discharge Date: Discharge Date: Expected LOS: Initial Reviewer: [id number] Initial Review Date: 05/09/2018 Generated: 05/09/18 6:05 pm Comments DCP- Discharge Planning Updated by [email or web address]: Gurvinder Douglas on 05/09/18 3:[address] Patient Name: IDRIS BERNAL Admission Status: ER Accout number: [id number] Admission Date: 05-06-2018 : 1930 Admission Diagnosis:SHORTNESS OF BREATH Attending: EDI ANN Current LOS: 3 Anticipated DC Date: Planned Disposition: Home with Home Health OR CARE HOME FACILITY Primary Insurance: MEDICARE A & B PLANNED EXTERNAL PROVIDER: TO BE DETERMINED Discharge Planning Comments: CM RECEIVED INPATIENT REHAB PRESCREENING ORDER, SPOKE TO VANDANA OF INPATIENT REHAB WHO INFORMED CM THAT PT IS TOO HIGH FUNCTIONING AND THEY WILL NOT ACCEPT. CM MET WITH PT IN ROOM TO DISCUSS DISCHARGE PLANNING AND NEEDS. PT REPORTS LIVING AT HOME ALONE AND INDEPENDENTLY EXCEPT FOR BATHING FOR WHICH HE HAS CAREGIVERS THREE DAYS PER WEEK THAT ARE PAID PRIVATELY. PT HAS WALKER AND CANE WITH NO MEDICAL EQUIPMENT PROVIDER PREFERNENCE. CM DISCUSSED AVAILABILITY OF HOME HEALTH, CARE HOME REHAB SERVICES AND MEDICAL EQUIPMENT. PT REPORTS HE WANTS TO GO HOME BUT MAY CONSIDER CARE HOME HE REPORTS STILL BEING TOO WEAK TODAY TO GO HOME. PT WANTS CM TO TALK TO MENDY, HIS SON AND THEY WILL DISCUSS REHAB NEEDS AND LET CM KNOW. PT REPORTS HIS SON OR FRIEND WILL PICK HIM UP FOR DISCHARGE HOME. IMPORTANT MESSAGE FROM MEDICARE PROVIDED AND EXPLAINED. CM PROVIDED AND DISCUSSED PROVIDER LISTINGS FOR CARE HOME FACILITIES AND HOME HEALTH. CM CALLED MENDY BERNAL AT [phone], SPOKE TO MARCELLA MAYEN WHO INFORMED CM THAT HE THINKS PT WILL NEED REHAB AND WILL HAVE MENDY CALL CM AND THEY WILL PROBABLY BE BACK TO HOSPITAL THIS AFTERNOON TO DISCUSS DISCHARGE NEEDS AND REHAB. CM WAITING PT AND FAMILY TO DECIDE ON CARE HOME REHAB OR HOME HEALTH SERVICES. PT DOES NOT QUALIFY FOR INPATIENT REHAB SERVICES. Automatic I Threading Machine Feeder: Gurvinder Douglas Appended by Gurvinder Douglas on 05/09/2018 16:40 CDT: CM RECEIVED CALL FROM MENDY BERNAL, PT'S SON, , DISCUSSED REHAB AND HOME HEALTH OPTIONS AND PROVIDERS. MENDY WOULD LIKE PT REFERRED TO [facility] WHERE DR. PAT, PT'S PRIMARY CARE DOCTOR, IS THE ROOF SLATER. FAMILY FEELS PT IS WEAK AND NEEDS REHAB PRIOR TO RETURN HOME. CHOICE LETTER COMPLETED. CM NOTIFIED PT WHO IS IN AGREEMENT WITH REHAB REFERRAL. CM CALLED [facility], , SPOKE TO KVNG WHO WILL SCREEN FOR REHAB ADMISSION. CM FAXED REFERRAL TO [facility] AT [phone]. CM WAITING ADMISSION DETERMINATION FROM [facility] FOR MEDICARE REHAB BED ADMISSION. GURVINDER DOUGLAS, CASE MANAGEMENT Appended by Gurvinder Douglas on 05/09/2018 16:56 CDT: CM SPOKE TO [facility] WHO INFORMED CM THAT PT HAS [facility] AT HOME AND THEY HAVE REFERRAL FOR HOME HEALTH WHEN PT GOES HOME. CM ADVISED OF PLACEMENT PENDING FOR REHAB AT [facility]. CM WAITING ADMISSION DETERMINATION FROM [facility] FOR MEDICARE REHAB BED ADMISSION. GURVINDER DOUGLAS CASE MANAGEMENT DCPIA - Discharge Planning Initial Assessment Updated by [id number]: Gurvinder Douglas on 05/09/18 4:37 pm * Is the patient Alert and Oriented? Yes * How many steps to enter\exit or inside your home? * PCP DR. PAT * Pharmacy [facility] [address] * Preadmission Environment Home Alone * ADLs Partial Dependent * Partial ADLs (Assistance needed) Bathing * Equipment Cane Walker * Other Equipment NO MEDICAL EQUIPMENT PROVIDER PREFERENCE * List name and contact numbers for known caregivers / representatives who currently or will assist patient after discharge: MENDYHerbie BERNAL MENDY, MARCELLA FAHEEM, KAILEY, * Verbal permission to speak to the caregivers and representatives has been obtained from the patient. Yes * Community resources currently utilized Private Duty Care * Please name any agencies selected above. [facility], AT LEAST THREE DAYS PER WEEK * Additional services required to return to the preadmission environment? Yes * Can the patient safely return to the preadmission environment? Yes * Has this patient been hospitalized within the prior 30 days at any hospital? No Coverage Notice Reviewer: [id number] Douglas Notice Issued Date-Time: 05/09/2018 15:15 Notice Type: IM Discharge Notice Notice Delivered To: Patient Relationship to Patient: Inside Polisher Name: Delivery Method: HAND - Hand Delivered Margo Days: Prior Verbal Notification: Recipient Understood Notice: Yes Recipient Signature: Yes Med Rec Note Co-signed by Attending: Coverage Notice Comment: Reviewer: [id number] Eliecer Douglas Notice Issued Date-Time: 05/09/2018 16:25 Notice Type: IM Discharge Notice Notice Delivered To: Family Member Relationship to Patient: Son Inside Polisher Name: MENDY BERNAL Delivery Method: HAND - Hand Delivered Margo Days: Prior Verbal Notification: Recipient Understood Notice: Yes Recipient Signature: Yes Med Rec Note Co-signed by Attending: Coverage Notice Comment: [facility] Last DP export: 05/09/18 3:48 p Patient Name: IDRIS BERNAL Page [id number] at 1705 All edits/amendments must be made on the electronic document DICTATION DATE: 05/09/181703 CLEARANCE REPRESENTATIVE: [place] 05/09/181703 RPT#: [id number] DC DATE: STATUS: ADM IN [facility] [address] [place] [address] END OF REPORT
--- NOTE | 2018-05-09 19:00 | NUR ---
ASSISTED UP TO RESTROOM ..TOLERATED WELL. IV TO LEFT ARM WITH NO REDNESS NO EDEMA AND RUNNING NS AT 100. LCTA PT ON RA AT THUIS TIME. SR X2 BED LOW AND CALL LIGHT BACK WITHIN REACH.
[2018-05-09 20:38] VITALS: BP 110/57
[2018-05-10] VITALS: BP 120/65
--- NOTE | 2018-05-10 | NUR ---
I have reviewed this patient and I concur with the Shift Assessment completed by the Licensed Practical Nurse today this shift.
[2018-05-10 04:00] VITALS: BP 113/57
[2018-05-10 05:51] LABS: BASOPHILS 0.2 % (0-2); EOSINOPHILS 0.7 % (0-7); HEMATOCRIT 30.5 % (42.0-54.0); IMMATURE GRANULOCYTES 0.5 % (0-5); LYMPHOCYTES 5.8 % (15-50); MCH 31.7 pg (26.0-34.0); MCHC 32.8 g/dL (31.0-37.0); MCV 96.8 fL (80.0-100.0); MEAN PLATELET VOLUME 8.8 fL (7.4-10.4); MONOCYTES 6.5 % (2-11); NEUTROPHILS 86.3 % (40-80); PLATELET COUNT 338 10x3/uL (130-400); RBC 3.15 10x6/uL (4.20-6.10); RDW 13.4 % (11.5-14.5); WBC 11.9 10x3/uL (4.8-10.8)
[2018-05-10 06:16] LABS: ANION GAP 7.9 mmol/L (8-16); CALCIUM 7.8 mg/dL (8.5-10.1); CARBON DIOXIDE 29.4 mmol/L (21.0-32.0); CREATININE - SERUM 1.1 mg/dL (0.6-1.3); POTASSIUM - SERUM 4.3 mmol/L (3.5-5.1)
--- NOTE | 2018-05-10 08:00 | NUR ---
RECIEVED BEDSIDE REPORT. AM ROUND COMPLETED. RR EVEN AND UNLABORED, NO S/S OF RR DISTRESS. AM MEDS GIVEN, SON AT BEDSIDE. WILL CPOC. CL IN REACH, BED IN LOW. SR UP X2.
[2018-05-10 08:18] VITALS: BP 155/77
--- NOTE | 2018-05-10 10:10 | NUR ---
PT WITH PT AT THIS TIME. PT WALKING AROUND THE WERNER. WILL CTM.
[2018-05-10 12:32] VITALS: BP 105/60
[2018-05-10 15:59] VITALS: BP 121/61
--- NOTE | 2018-05-10 18:00 | NUR ---
PT ADDY SITTING ON HIS COUCH EATING DINNER. PO FERNYCE GIVEN. APPLIED BUTT ON PT. PT DENIES ANY FURTHER NEEDS AT THIS TIME. WILL CPOC.
--- NOTE | 2018-05-10 19:30 | NUR ---
RECEIVED REPORT, WILL ASSUME CARE OF PT, PT IS SLEEPING, NO DISTRESS NOTICED AT THIS TIME, BED IS LOW, SRX2, CALL LIGHT IN REACH, WILL CONTINUE PLAN OF CARE
[2018-05-10 20:00] VITALS: BP 109/43
--- NOTE | 2018-05-10 20:36 | NUR ---
PT REQUESTING TO CALL HIS SON MENDY
[2018-05-11] VITALS: BP 120/57
--- NOTE | 2018-05-11 00:13 | NUR ---
SLEEPING ON L.SIDE. NO DISTRESS NOTICED AT THIS TIME, BED IS LOW, SRX2, CALL LIGHT IN REACH, WILL CONTINUE PLAN OF CARE
--- NOTE | 2018-05-11 02:55 | NUR ---
I have reviewed this patient and I concur with the Shift Assessment completed by the Licensed Practical Nurse today this shift.
[2018-05-11 04:00] VITALS: BP 140/83
[2018-05-11 05:36] LABS: BASOPHILS 0.3 % (0-2); EOSINOPHILS 0.7 % (0-7); HEMATOCRIT 31.3 % (42.0-54.0); HEMOGLOBIN 10.2 g/dL (13.5-17.5); IMMATURE GRANULOCYTES 0.6 % (0-5); MCH 31.3 pg (26.0-34.0); MCHC 32.6 g/dL (31.0-37.0); MEAN PLATELET VOLUME 8.6 fL (7.4-10.4); NEUTROPHILS 85.4 % (40-80); PLATELET COUNT 356 10x3/uL (130-400); RBC 3.26 10x6/uL (4.20-6.10); RDW 13.5 % (11.5-14.5); WBC 12.4 10x3/uL (4.8-10.8)
[2018-05-11 05:40] LABS: ANION GAP 8.2 mmol/L (8-16); CREATININE - SERUM 1.1 mg/dL (0.6-1.3); POTASSIUM - SERUM 4.2 mmol/L (3.5-5.1)
--- NOTE | 2018-05-11 08:00 | NUR ---
AM ROUNDS COMPLETED. VSS, AAOX2. PT NOT ORIENTED TO TIME AND SITUATION. RR EVEN AND UNLABORED. ASSIST PT TO BATHROOM. PROVIDED PT WITH WARM BLANKET PER PT REQUEST. PT DENIES ANY FURTHER NEEDS FOR COMFORT CARE. WILL CTM. CL IN REACH, BED IN LOW, SR UP X2.
[2018-05-11 09:00] VITALS: BP 132/65
[2018-05-11 12:41] VITALS: BP 148/71
[2018-05-11 16:25] VITALS: BP 139/65
--- NOTE | 2018-05-11 17:25 | NUR ---
PT BRITTANEYENLTY SITTING ON THE EDGE OF THE BED EATING DINNER. SON AT BEDSIDE. PT STATES HE IS FEELING A LITTLE TIRED AND WEEK AND A LITTLE HOT. ASSESSED PT VS. PT VSS. PT DENIES ANY FURTHER NEEDS AT THIS TIME WILL CPOC.
--- NOTE | 2018-05-11 19:33 | NUR ---
RECEIVED REPORT, WILL ASSUME CARE OF PT, PT LAYING ON LEFTSIDE, DENIES ANY NEEDS AT THIS TIME, BED IS LOW, SRX2, CALL LIGHT IN REACH, WILL CONTINUE PLAN OF CARE
[2018-05-11 20:26] VITALS: BP 125/60
--- NOTE | 2018-05-11 21:00 | NUR ---
PT VISITING WITH SON TASHA
[2018-05-12 01:37] VITALS: BP 137/69
--- NOTE | 2018-05-12 01:51 | NUR ---
I have reviewed this patient and I concur with the Shift Assessment completed by the Licensed Practical Nurse today this shift.
[2018-05-12 05:31] VITALS: BP 139/64
[2018-05-12 06:17] LABS: BASOPHILS 0.3 % (0-2); EOSINOPHILS 1.1 % (0-7); HEMATOCRIT 32.8 % (42.0-54.0); HEMOGLOBIN 10.8 g/dL (13.5-17.5); IMMATURE GRANULOCYTES 0.7 % (0-5); LYMPHOCYTES 6.9 % (15-50); MCH 31.6 pg (26.0-34.0); MCHC 32.9 g/dL (31.0-37.0); MCV 95.9 fL (80.0-100.0); MEAN PLATELET VOLUME 8.9 fL (7.4-10.4); MONOCYTES 5.5 % (2-11); NEUTROPHILS 85.5 % (40-80); PLATELET COUNT 364 10x3/uL (130-400); RBC 3.42 10x6/uL (4.20-6.10); RDW 13.9 % (11.5-14.5); WBC 11.2 10x3/uL (4.8-10.8)
[2018-05-12 06:18] LABS: CARBON DIOXIDE 27.3 mmol/L (21.0-32.0); CREATININE - SERUM 1.2 mg/dL (0.6-1.3); POTASSIUM - SERUM 4.3 mmol/L (3.5-5.1)
[2018-05-12 08:23] VITALS: BP 134/68
--- NOTE | 2018-05-12 10:51 | MORECARE ---
CASE MANAGEMENT DISCHARGE SUMMARY PATIENT: IDRIS BERNAL UNIT: [id number] ADM DATE: 05/06/18 AGE: 88 : 30 SEX: M ROOM/BED: D.7748 AUTHOR: MONICA,DOC PHYSICIAN: REFERRING PHYSICIAN: EDI ANN MD DATE OF SERVICE: 05/12/18 Discharge Plan Patient Name: IDRIS BERNAL Facility: [facility]:[place] : 1930 Planned Disposition: Care Home Facility Anticipated Discharge Date: 05/12/18 Discharge Date: Expected LOS: 6 Initial Reviewer: [id number] Initial Review Date: 05/09/2018 Generated: 05/12/18 11:50 am Comments DCP- Discharge Planning Updated by [id number]: Gurvinder Douglas on 05/09/18 3:[address] Patient Name: IDRIS BERNAL Admission Status: ER Accout number: [id number] Admission Date: 05-06-2018 : 1930 Admission Diagnosis:SHORTNESS OF BREATH Attending: EDI ANN Current LOS: 3 Anticipated DC Date: Planned Disposition: Home with Home Health OR GROUP HOME FACILITY Primary Insurance: MEDICARE A & B PLANNED EXTERNAL PROVIDER: TO BE DETERMINED Discharge Planning Comments: CM RECEIVED INPATIENT REHAB PRESCREENING ORDER, SPOKE TO VANDANA OF INPATIENT REHAB WHO INFORMED CM THAT PT IS TOO HIGH FUNCTIONING AND THEY WILL NOT ACCEPT. CM MET WITH PT IN ROOM TO DISCUSS DISCHARGE PLANNING AND NEEDS. PT REPORTS LIVING AT HOME ALONE AND INDEPENDENTLY EXCEPT FOR BATHING FOR WHICH HE HAS CAREGIVERS THREE DAYS PER WEEK THAT ARE PAID PRIVATELY. PT HAS WALKER AND CANE WITH NO MEDICAL EQUIPMENT PROVIDER PREFERNENCE. CM DISCUSSED AVAILABILITY OF HOME HEALTH, GROUP HOME REHAB SERVICES AND MEDICAL EQUIPMENT. PT REPORTS HE WANTS TO GO HOME BUT MAY CONSIDER GROUP HOME HE REPORTS STILL BEING TOO WEAK TODAY TO GO HOME. PT WANTS CM TO TALK TO MENDY, HIS SON AND THEY WILL DISCUSS REHAB NEEDS AND LET CM KNOW. PT REPORTS HIS SON OR FRIEND WILL PICK HIM UP FOR DISCHARGE HOME. IMPORTANT MESSAGE FROM MEDICARE PROVIDED AND EXPLAINED. CM PROVIDED AND DISCUSSED PROVIDER LISTINGS FOR GROUP HOME FACILITIES AND HOME HEALTH. CM CALLED MENDY BERNAL AT [phone], SPOKE TO MARCELLA MAYEN WHO INFORMED CM THAT HE THINKS PT WILL NEED REHAB AND WILL HAVE MENDY CALL CM AND THEY WILL PROBABLY BE BACK TO HOSPITAL THIS AFTERNOON TO DISCUSS DISCHARGE NEEDS AND REHAB. CM WAITING PT AND FAMILY TO DECIDE ON GROUP HOME REHAB OR HOME HEALTH SERVICES. PT DOES NOT QUALIFY FOR INPATIENT REHAB SERVICES. Hard Rock Miner Blasting: Gurvinder Douglas Appended by Gurvinder Douglas on 05/09/2018 16:40 CDT: CM RECEIVED CALL FROM MENDY BERNAL, PT'S SON, , DISCUSSED REHAB AND HOME HEALTH OPTIONS AND PROVIDERS. MENDY WOULD LIKE PT [facility] WHERE DR. PAT, PT'S PRIMARY CARE DOCTOR, IS THE [facility]IL[facility] BURNER. FAMILY FEELS PT IS WEAK AND NEEDS REHAB PRIOR TO RETURN HOME. CHOICE LETTER COMPLETED. CM NOTIFIED PT WHO IS IN AGREEMENT WITH REHAB REFERRAL. CM CALLED [facility], , SPOKE TO KVNG WHO WILL SCREEN FOR REHAB ADMISSION. CM FAXED REFERRAL TO [facility] AT [phone]. CM WAITING ADMISSION DETERMINATION FROM [facility] FOR MEDICARE REHAB BED ADMISSION. GURVINDER DOUGLAS, CASE MANAGEMENT Appended by Gurvinder Douglas on 05/09/2018 16:56 CDT: CM SPOKE TO [facility] WHO INFORMED CM THAT PT HAS [facility] AT HOME AND THEY HAVE REFERRAL FOR HOME HEALTH WHEN PT GOES HOME. CM ADVISED OF PLACEMENT PENDING FOR REHAB AT [facility]. CM WAITING ADMISSION DETERMINATION FROM [facility] FOR MEDICARE REHAB BED ADMISSION. GURVINDER DOUGLAS, CASE MANAGEMENT DCPIA - Discharge Planning Initial Assessment Updated by [id number]: Gurvinder Douglas on 05/09/18 4:37 pm * Is the patient Alert and Oriented? Yes * How many steps to enter\exit or inside your home? * PCP DR. PAT * Pharmacy [facility] [address] * Preadmission Environment Home Alone * ADLs Partial Dependent * Partial ADLs (Assistance needed) Bathing * Equipment Cane Walker * Other Equipment NO MEDICAL EQUIPMENT PROVIDER PREFERENCE * List name and contact numbers for known caregivers / representatives who currently or will assist patient after discharge: MENDY GEORGES, MARCELLA MAYEN, FRIEND, * Verbal permission to speak to the caregivers and representatives has been obtained from the patient. Yes * Community resources currently utilized Private Duty Care * Please name any agencies selected above. [facility], AT LEAST THREE DAYS PER WEEK * Additional services required to return to the preadmission environment? Yes * Can the patient safely return to the preadmission environment? Yes * Has this patient been hospitalized within the prior 30 days at any hospital? No Coverage Notice Reviewer: [id number] Douglas Notice Issued Date-Time: 05/09/2018 15:15 Notice Type: IM Discharge Notice Notice Delivered To: Patient Relationship to Patient: Obstetrics Technician Name: Delivery Method: HAND - Hand Delivered Margo Days: Prior Verbal Notification: Recipient Understood Notice: Yes Recipient Signature: Yes Med Rec Note Co-signed by Attending: Coverage Notice Comment: Reviewer: [id number] Eliecer Douglas Notice Issued Date-Time: 05/09/2018 16:25 Notice Type: IM Discharge Notice Notice Delivered To: Family Member Relationship to Patient: Son Obstetrics Technician Name: MENDY BERNAL Delivery Method: HAND - Hand Delivered Margo Days: Prior Verbal Notification: Recipient Understood Notice: Yes Recipient Signature: Yes Med Rec Note Co-signed by Attending: Coverage Notice Comment: [facility] Last DP export: 05/09/18 4:05 p Patient Name: IDRIS BERNAL Page 95093 at 1051 All edits/amendments must be made on the electronic document DICTATION DATE: 05/12/18 1050 BOX MAKER WOOD: [place] 05/12/18 1050 RPT#: [id number] DC DATE: STATUS: ADM IN [facility] [address] [place] [address] END OF REPORT
--- NOTE | 2018-05-12 10:58 | MORECARE ---
CASE MANAGEMENT DISCHARGE SUMMARY PATIENT: IDRIS BERNAL UNIT: [id number] ADM DATE: 05/06/18 AGE: 88 : 30 SEX: M ROOM/BED: D.2137 AUTHOR: CATINA ANDERSON PHYSICIAN: REFERRING PHYSICIAN: EDI ANN MD DATE OF SERVICE: 05/12/18 Discharge Plan Patient Name: IDRIS BERNAL Facility: [facility]:[place] : 1930 Planned Disposition: [facility] Facility Anticipated Discharge Date: 05/12/18 Discharge Date: Expected LOS: 6 Initial Reviewer: [id number] Initial Review Date: 05/09/2018 Generated: 05/12/18 11:58 am Comments DCP- Discharge Planning Updated by [email or web address]: Gurvinder Douglas on 05/12/18 9:[address] Patient Name: IDRIS BERNAL Encounter No: [id number] : 1930 Primary Insurance: MEDICARE A & B Anticipated DC Date: 05-12-2018 Planned Disposition: [facility] Facility External Planned Provider: [facility], MEDICARE REHAB BED DCP follow-up note: CM RECEIVED CALL FROM [facility] OF [facility], ; THEY ARE REVIEWING PT'S REFERRAL FOR POSSIBLE ADMISSION TODAY. CM FAXED UPDATE TO [facility], . CM WAITING ADMISSION DETERMINATION FOR REHAB FROM [facility]. Gurvinder Douglas, CURT SPRINGER DCP- Discharge Planning Updated by [email or web address]: Gurvinder Douglas on 05/09/18 3:[address] Patient Name: IDRIS BERNAL Admission Status: ER Accout number: [id number] Admission Date: 05-06-2018 : 1930 Admission Diagnosis:SHORTNESS OF BREATH Attending: EDI ANN Current LOS: 3 Anticipated DC Date: Planned Disposition: Home with Home Health OR INTERMEDIATE FACILITY Primary Insurance: MEDICARE A & B PLANNED EXTERNAL PROVIDER: TO BE DETERMINED Discharge Planning Comments: CM RECEIVED INPATIENT REHAB PRESCREENING ORDER, SPOKE TO VANDANA OF INPATIENT REHAB WHO INFORMED CM THAT PT IS TOO HIGH FUNCTIONING AND THEY WILL NOT ACCEPT. CM MET WITH PT IN ROOM TO DISCUSS DISCHARGE PLANNING AND NEEDS. PT REPORTS LIVING AT HOME ALONE AND INDEPENDENTLY EXCEPT FOR BATHING FOR WHICH HE HAS CAREGIVERS THREE DAYS PER WEEK THAT ARE PAID PRIVATELY. PT HAS WALKER AND CANE WITH NO MEDICAL EQUIPMENT PROVIDER PREFERNENCE. CM DISCUSSED AVAILABILITY OF HOME HEALTH, INTERMEDIATE REHAB SERVICES AND MEDICAL EQUIPMENT. PT REPORTS HE WANTS TO GO HOME BUT MAY CONSIDER INTERMEDIATE HE REPORTS STILL BEING TOO WEAK TODAY TO GO HOME. PT WANTS CM TO TALK TO MENDY, HIS SON AND THEY WILL DISCUSS REHAB NEEDS AND LET CM KNOW. PT REPORTS HIS SON OR FRIEND WILL PICK HIM UP FOR DISCHARGE HOME. IMPORTANT MESSAGE FROM MEDICARE PROVIDED AND EXPLAINED. CM PROVIDED AND DISCUSSED PROVIDER LISTINGS FOR INTERMEDIATE FACILITIES AND HOME HEALTH. CM CALLED MENDY BERNAL AT [phone], SPOKE TO MARCELLA MAYEN WHO INFORMED CM THAT HE THINKS PT WILL NEED REHAB AND WILL HAVE MENDY CALL CM AND THEY WILL PROBABLY BE BACK TO HOSPITAL THIS AFTERNOON TO DISCUSS DISCHARGE NEEDS AND REHAB. CM WAITING PT AND FAMILY TO DECIDE ON INTERMEDIATE REHAB OR HOME HEALTH SERVICES. PT DOES NOT QUALIFY FOR INPATIENT REHAB SERVICES. Altitude Chamber Technician: Gurvinder Douglas Appended by Gurvinder Douglas on 05/09/2018 16:40 CDT: CM RECEIVED CALL FROM MENDY BERNAL, PT'S SON, , DISCUSSED REHAB AND HOME HEALTH OPTIONS AND PROVIDERS. MENDY WOULD LIKE PT REFERRED TO [facility] WHERE DR. PAT, PT'S PRIMARY CARE DOCTOR, IS THE MEDICAL OFFICE TECHNOLOGIST. FAMILY FEELS PT IS WEAK AND NEEDS REHAB PRIOR TO RETURN HOME. CHOICE LETTER COMPLETED. CM NOTIFIED PT WHO IS IN AGREEMENT WITH REHAB REFERRAL. CM CALLED [facility], , SPOKE TO [facility] WHO WILL SCREEN FOR REHAB ADMISSION. CM FAXED REFERRAL TO [facility] AT [phone]. CM WAITING ADMISSION DETERMINATION FROM [facility] AND [facility] FOR MEDICARE REHAB BED ADMISSION. GURVINDER DOUGLAS, CASE MANAGEMENT Appended by Gurvinder Douglas on 05/09/2018 16:56 CDT: CM SPOKE TO [facility] WHO INFORMED CM THAT PT HAS [facility] AT HOME AND THEY HAVE REFERRAL FOR HOME HEALTH WHEN PT GOES HOME. CM ADVISED OF PLAC[facility]. CM WAITING ADMISSION DETERMINATION FROM [facility] FOR MEDICARE REHAB BED ADMISSION. GURVINDER DOUGLAS, CASE MANAGEMENT DCPIA - Discharge Planning Initial Assessment Updated by [id number]: Gurvinder Douglas on 05/09/18 4:37 pm * Is the patient Alert and Oriented? Yes * How many steps to enter\exit or inside your home? * PCP DR. PAT * Pharmacy [facility] [address] * Preadmission Environment Home Alone * ADLs Partial Dependent * Partial ADLs (Assistance needed) Bathing * Equipment Cane Walker * Other Equipment NO MEDICAL EQUIPMENT PROVIDER PREFERENCE * List name and contact numbers for known caregivers / representatives who currently or will assist patient after discharge: MENDY GEORGES, KAILEY CAUSEY, * Verbal permission to speak to the caregivers and representatives has been obtained from the patient. Yes * Community resources currently utilized Private Duty Care * Please name any agencies selected above. [facility], AT LEAST THREE DAYS PER WEEK * Additional services required to return to the preadmission environment? Yes * Can the patient safely return to the preadmission environment? Yes * Has this patient been hospitalized within the prior 30 days at any hospital? No Coverage Notice Reviewer: [id number] Eliecer Douglas Notice Issued Date-Time: 05/09/2018 15:15 Notice Type: IM Discharge Notice Notice Delivered To: Patient Relationship to Patient: Head Golf Coach Name: Delivery Method: HAND - Hand Delivered Margo Days: Prior Verbal Notification: Recipient Understood Notice: Yes Recipient Signature: Yes Med Rec Note Co-signed by Attending: Coverage Notice Comment: Reviewer: [id number] Eliecer Douglas Notice Issued Date-Time: 05/09/2018 16:25 Notice Type: IM Discharge Notice Notice Delivered To: Family Member Relationship to Patient: Son Head Golf Coach Name: MENDY BERNAL Delivery Method: HAND - Hand Delivered Margo Days: Prior Verbal Notification: Recipient Understood Notice: Yes Recipient Signature: Yes Med Rec Note Co-signed by Attending: Coverage Notice Comment: [facility] Last DP export: 05/12/18 9:50 a Patient Name: IDRIS BERNAL Page 15126 at 1058 All edits/amendments must be made on the electronic document DICTATION DATE: 05/12/18 1055 PAIRING MACHINE OPERATOR: [place] 05/12/18 7990 RPT#: [id number] DC DATE: STATUS: ADM IN [facility] [address] [place] [address] END OF REPORT
[2018-05-12] MEDS ORDERED: LEVAQUIN750 MG PO (11:30)
[2018-05-12] MEDS ORDERED: IPRAT-ALBUT 0.5-3 ML INH (11:30)
[2018-05-12] MEDS ORDERED: FLORAJEN3 CAPS460 MG PO (11:31)
--- NOTE | 2018-05-12 11:48 | NUR ---
AM ROUNDS COMPLETED. VSS, AAOX2. WITH A LITTLE CONFUSION THIS AM. PT IS NOT ORIENTED TO TIME AND SITUATION. PT EXPRESS HIS DISATISFACTION ABOUT HIS SON LEAVING HIM LAST NIGHT AND ASKED IF I CAN CALL HIS SON FOR HIM. SON CALLED. AM MEDS GIVEN. NS @75. ASSIST PT TO BATHROOM. PT DENIES ANY FURTHER NEEDS FOR COMFORT CARE. WILL CTM. CL IN REACH, BED IN LOW SR UP X2.
[2018-05-12 11:52] VITALS: BP 130/71
--- NOTE | 2018-05-12 12:13 | MORECARE ---
CASE MANAGEMENT DISCHARGE SUMMARY PATIENT: IDRIS BERNAL UNIT: [id number] ADM DATE: 05/06/18 AGE: 88 : 30 SEX: M ROOM/BED: D.2137 AUTHOR: CATINA ANDERSON PHYSICIAN: REFERRING PHYSICIAN: EDI ANN MD DATE OF SERVICE: 05/12/18 Discharge Plan Patient Name: IDRIS BERNAL Facility: [facility]:[place] : 1930 Planned Disposition: [facility] Facility Anticipated Discharge Date: 05/12/18 Discharge Date: Expected LOS: 6 Initial Reviewer: [id number] Initial Review Date: 05/09/2018 Generated: 05/12/18 1:13 pm Comments DCP- Discharge Planning Updated by [id number]: Gurvinder Douglas on 05/12/18 9:[address] Patient Name: IDRIS BERNAL Encounter No: [id number] : 1930 Primary Insurance: MEDICARE A & B Anticipated DC Date: 05-12-2018 Planned Disposition: [facility] Facility External Planned Provider: [facility], MEDICARE REHAB BED DCP follow-up note: CM RECEIVED CALL FROM [facility] OF [facility], ; THEY ARE REVIEWING PT'S REFERRAL FOR POSSIBLE ADMISSION TODAY. CM FAXED UPDATE TO [facility], . CM WAITING ADMISSION DETERMINATION FOR REHAB FROM [facility]. Gurvinder Douglas, CURT SPRINGER DCP- Discharge Planning Updated by [email or web address]: Gurvinder Douglas on 05/09/18 3:[address] Patient Name: IDRIS BERNAL Admission Status: ER Accout number: [id number] Admission Date: 05-06-2018 : 1930 Admission Diagnosis:SHORTNESS OF BREATH Attending: EDI ANN Current LOS: 3 Anticipated DC Date: Planned Disposition: Home with Home Health OR CUSTODIAL FACILITY Primary Insurance: MEDICARE A & B PLANNED EXTERNAL PROVIDER: TO BE DETERMINED Discharge Planning Comments: CM RECEIVED INPATIENT REHAB PRESCREENING ORDER, SPOKE TO VANDANA OF INPATIENT REHAB WHO INFORMED CM THAT PT IS TOO HIGH FUNCTIONING AND THEY WILL NOT ACCEPT. CM MET WITH PT IN ROOM TO DISCUSS DISCHARGE PLANNING AND NEEDS. PT REPORTS LIVING AT HOME ALONE AND INDEPENDENTLY EXCEPT FOR BATHING FOR WHICH HE HAS CAREGIVERS THREE DAYS PER WEEK THAT ARE PAID PRIVATELY. PT HAS WALKER AND CANE WITH NO MEDICAL EQUIPMENT PROVIDER PREFERNENCE. CM DISCUSSED AVAILABILITY OF HOME HEALTH, CUSTODIAL REHAB SERVICES AND MEDICAL EQUIPMENT. PT REPORTS HE WANTS TO GO HOME BUT MAY CONSIDER CUSTODIAL HE REPORTS STILL BEING TOO WEAK TODAY TO GO HOME. PT WANTS CM TO TALK TO MENDY, HIS SON AND THEY WILL DISCUSS REHAB NEEDS AND LET CM KNOW. PT REPORTS HIS SON OR FRIEND WILL PICK HIM UP FOR DISCHARGE HOME. IMPORTANT MESSAGE FROM MEDICARE PROVIDED AND EXPLAINED. CM PROVIDED AND DISCUSSED PROVIDER LISTINGS FOR CUSTODIAL FACILITIES AND HOME HEALTH. CM CALLED MENDY BERNAL AT [phone], SPOKE TO MARCELLA MAYEN WHO INFORMED CM THAT HE THINKS PT WILL NEED REHAB AND WILL HAVE MENDY CALL CM AND THEY WILL PROBABLY BE BACK TO HOSPITAL THIS AFTERNOON TO DISCUSS DISCHARGE NEEDS AND REHAB. CM WAITING PT AND FAMILY TO DECIDE ON CUSTODIAL REHAB OR HOME HEALTH SERVICES. PT DOES NOT QUALIFY FOR INPATIENT REHAB SERVICES. Fabric Awning Repairer: Gurvinder Douglas Appended by Gurvinder Douglas on 05/09/2018 16:40 CDT: CM RECEIVED CALL FROM MENDY BERNAL, PT'S SON, , DISCUSSED REHAB AND HOME HEALTH OPTIONS AND PROVIDERS. MENDY WOULD LIKE PT [facility]FERRED TO [facility] WHERE DR. PAT, PT'S PRIMARY CARE DOCTOR, IS THE MECHANICAL PRODUCT ENGINEER. FAMILY FEELS PT IS WEAK AND NEEDS REHAB PRIOR TO RETURN HOME. CHOICE LETTER COMPLETED. CM NOTIFIED PT WHO IS IN AGREEMENT WITH REHAB REFERRAL. CM CALLED [facility], , SPOKE TO [facility] WHO WILL SCREEN FOR REHAB ADMISSION. CM FAXED REFERRAL TO [facility] AT [phone]. CM WAITING ADMISSION DETERMINATION FROM [facility] AND [facility] FOR MEDICARE REHAB BED ADMISSION. GURVINDER DOUGLAS, CASE MANAGEMENT Appended by Gurvinder Douglas on 05/09/2018 16:56 CDT: CM [facility] WHO INFORMED CM THAT PT HAS [facility] AT HOME AND THEY HAVE REFERRAL FOR HOME HEALTH WHEN PT GOES HOME. CM ADVISED OF PLACEMENT PEND[facility]. CM WAITING ADMISSION DETERMINATION FROM [facility] FOR MEDICARE REHAB BED ADMISSION. GURVINDER DOUGLAS, CASE MANAGEMENT DCPIA - Discharge Planning Initial Assessment Updated by [id number]: Gurvinder Douglas on 05/09/18 4:37 pm * Is the patient Alert and Oriented? Yes * How many steps to enter\exit or inside your home? * PCP DR. PAT * Pharmacy [facility] ON [address] * Preadmission Environment Home Alone * ADLs Partial Dependent * Partial ADLs (Assistance needed) Bathing * Equipment Cane Walker * Other Equipment NO MEDICAL EQUIPMENT PROVIDER PREFERENCE * List name and contact numbers for known caregivers / representatives who currently or will assist patient after discharge: MENDY GEORGES, KAILEY CAUSEY, * Verbal permission to speak to the caregivers and representatives has been obtained from the patient. Yes * Community resources currently utilized Private Duty Care * Please name any agencies selected above. [facility], AT LEAST THREE DAYS PER WEEK * Additional services required to return to the preadmission environment? Yes * Can the patient safely return to the preadmission environment? Yes * Has this patient been hospitalized within the prior 30 days at any hospital? No Coverage Notice Reviewer: [id number] Eliecer Douglas Notice Issued Date-Time: 05/09/2018 15:15 Notice Type: IM Discharge Notice Notice Delivered To: Patient Relationship to Patient: Rda Name: Delivery Method: HAND - Hand Delivered Margo Days: Prior Verbal Notification: Recipient Understood Notice: Yes Recipient Signature: Yes Med Rec Note Co-signed by Attending: Coverage Notice Comment: Reviewer: [id number] Douglas Notice Issued Date-Time: 05/09/2018 16:25 Notice Type: IM Discharge Notice Notice Delivered To: Family Member Relationship to Patient: Son Rda Name: MENDY BERNAL Delivery Method: HAND - Hand Delivered Margo Days: Prior Verbal Notification: Recipient Understood Notice: Yes Recipient Signature: Yes Med Rec Note Co-signed by Attending: Coverage Notice Comment: [facility] Reviewer: [id number] Douglas Notice Issued Date-Time: 05/12/2018 11:55 Notice Type: IM Discharge Notice Notice Delivered To: Patient Relationship to Patient: Rda Name: Delivery Method: HAND - Hand Delivered Margo Days: Prior Verbal Notification: Recipient Understood Notice: Yes Recipient Signature: Yes Med Rec Note Co-signed by Attending: Coverage Notice Comment: Last DP export: 05/12/18 9:58 a Patient Name: IDRIS BERNAL Page [id number] at 1213 All edits/amendments must be made on the electronic document DICTATION DATE: 05/12/18 1213 COLOR STRAINING BAG WASHER: [place] 05/12/18 1213 RPT#: [id number] DC DATE: STATUS: ADM IN [facility] [address] [place] [address] END OF REPORT
--- NOTE | 2018-05-12 12:21 | MORECARE ---
CASE MANAGEMENT DISCHARGE SUMMARY PATIENT: IDRIS BERNAL UNIT: [id number] ADM DATE: 05/06/18 AGE: 88 : 30 SEX: M ROOM/BED: D.8207 AUTHOR: MONICA,DOC PHYSICIAN: REFERRING PHYSICIAN: EDI ANN MD DATE OF SERVICE: 05/12/18 Discharge Plan Patient Name: IDRIS BERNAL Facility: [facility]:[place] : 1930 Planned Disposition: Custodial Facility Anticipated Discharge Date: 05/12/18 Discharge Date: Expected LOS: 6 Initial Reviewer: ZAN Initial Review Date: 05/09/2018 Generated: 05/12/18 1:21 pm Comments DCP- Discharge Planning Updated by ZAN: Gurvinder Douglas on 05/12/18 11:[address] Patient Name: IDRIS BERNAL Encounter No: [id number] : 1930 Primary Insurance: MEDICARE A & B Anticipated DC Date: 05-12-2018 Planned Disposition: Custodial Facility External Planned Provider: [facility], MEDICARE REHAB BED DCP follow-up note: CM RECEIVED CALL FROM [facility], ; THEY WILL ACCEPT PT FOR REHAB TODAY. CM NOTIFIED TERESO REID. CM NOTIFIED PT AND SONTASHA, IN ROOM. PT IN AGREEMENT WITH PLAN FOR REHAB ARRANGED BY HIS SON MENDY. IMPORTANT MESSAGE FROM MEDICARE PROVIDED AND EXPLAINED. FOR DISCHARGE, FAX DISCHARGE INFORMATION TO [facility] AT [phone], NURSE REPORT TO BE CALLED TO [facility] AT [phone]. [facility] TO ARRANGE VAN TRANSPORTATION. Gurvinder Douglas CASE MANAGEMENT Appended by Gurvinder Douglas on 05/12/2018 12:21 CDT: CM RECEIVED CALL FROM [facility], TRANSPORT ARRANGED FOR 2PM TODAY FOR EARLY CHILDHOOD EDUCATION COORDINATOR AND TRANSPORT TO REHAB. CREAM GATHERER NURSE NOTIFIED. FOR DISCHARGE, FAX DISCHARGE INFORMATION TO [facility] AT [phone], NURSE REPORT TO BE CALLED TO [facility] AT [phone]. [facility] TO ARRANGE VAN TRANSPORTATION FIR 1400 HOURS TODAY. CURT Vizcarra DCP- Discharge Planning Updated by [email or web address]: Gurvinder Douglas on 05/12/18 9:[address] Patient Name: IDRIS BERNAL Encounter No: [id number] : 1930 Primary Insurance: MEDICARE A & B Anticipated DC Date: 05-12-2018 Planned Disposition: Custodial Facility External Planned Provider: [facility], MEDICARE REHAB BED DCP follow-up note: CM RECEIVED CALL FROM [facility], ; THEY ARE REVIEWING PT'S REFERRAL FOR POSSIBLE ADMISSION TODAY. CM FAXED UPDATE TO [facility], . CM WAITING ADMISSION DETERMINATION FOR REHAB FROM [facility]. Gurvinder Douglas, CASE MANAGEMENT DCP- Discharge Planning Updated by [id number]: Gurvinder Douglas on 05/09/18 3:[address] Patient Name: IDRIS BERNAL Admission Status: ER Accout number: [id number] Admission Date: 05-06-2018 : 1930 Admission Diagnosis:SHORTNESS OF BREATH Attending: EDI ANN Current LOS: 3 Anticipated DC Date: Planned Disposition: Home with Home Health OR LONG-TERM FACILITY Primary Insurance: MEDICARE A & B PLANNED EXTERNAL PROVIDER: TO BE DETERMINED Discharge Planning Comments: CM RECEIVED INPATIENT REHAB PRESCREENING ORDER, SPOKE TO VANDANA OF INPATIENT REHAB WHO INFORMED CM THAT PT IS TOO HIGH FUNCTIONING AND THEY WILL NOT ACCEPT. CM MET WITH PT IN ROOM TO DISCUSS DISCHARGE PLANNING AND NEEDS. PT REPORTS LIVING AT HOME ALONE AND INDEPENDENTLY EXCEPT FOR BATHING FOR WHICH HE HAS CAREGIVERS THREE DAYS PER WEEK THAT ARE PAID PRIVATELY. PT HAS WALKER AND CANE WITH NO MEDICAL EQUIPMENT PROVIDER PREFERNENCE. CM DISCUSSED AVAILABILITY OF HOME HEALTH, LONG-TERM REHAB SERVICES AND MEDICAL EQUIPMENT. PT REPORTS HE WANTS TO GO HOME BUT MAY CONSIDER LONG-TERM HE REPORTS STILL BEING TOO WEAK TODAY TO GO HOME. PT WANTS CM TO TALK TO MENDY, HIS SON AND THEY WILL DISCUSS REHAB NEEDS AND LET CM KNOW. PT REPORTS HIS SON OR FRIEND WILL PICK HIM UP FOR DISCHARGE HOME. IMPORTANT MESSAGE FROM MEDICARE PROVIDED AND EXPLAINED. CM PROVIDED AND DISCUSSED PROVIDER LISTINGS FOR LONG-TERM FACILITIES AND HOME HEALTH. CM CALLED MENDY BERNAL AT [phone], SPOKE TO MARCELLA MAYEN WHO INFORMED CM THAT HE THINKS PT WILL NEED REHAB AND WILL HAVE MENDY CALL CM AND THEY WILL PROBABLY BE BACK TO HOSPITAL THIS AFTERNOON TO DISCUSS DISCHARGE NEEDS AND REHAB. CM WAITING PT AND FAMILY TO DECIDE ON LONG-TERM REHAB OR HOME HEALTH SERVICES. PT DOES NOT QUALIFY FOR INPATIENT REHAB SERVICES. Editing Intern: Gurvinder Douglas Appended by Gurvinder Douglas on 05/09/2018 16:40 CDT: CM RECEIVED CALL FROM MENDY BERNAL, PT'S SON, , DISCUSSED REHAB AND HOME HEALTH OPTIONS AND PROVIDERS. MENDY WOULD LIKE PT REFERRED TO [facility] WHERE DR. PAT, PT'S PRIMARY CARE DOCTOR, IS THE TECHNICAL INTERNSHIP. FAMILY FEELS PT IS WEAK AND NEEDS REHAB PRIOR TO RETURN HOME. CHOICE LETTER COMPLETED. CM NOTIFIED PT WHO IS IN AGREEMENT WITH REHAB REFERRAL. CM CALLED [facility], , SPOKE TO [facility] WHO WILL SCREEN FOR REHAB ADMISSION. CM FAXED REFERRAL TO [facility] AT [phone]. CM WAITING ADMISSION DETERMINATION FROM [facility] FOR MEDICARE REHAB BED ADMISSION. GURVINDER DOUGLAS, CASE MANAGEMENT Appended by Gurvinder Douglas on 05/09/2018 16:56 CDT: CM SPOKE TO [facility] WHO INFORMED CM THAT PT HAS [facility] AT HOME AND THEY HAVE REFERRAL FOR HOME HEALTH WHEN PT GOES HOME. CM ADVISED OF PLACEMENT PENDING FOR REHAB AT [facility]. CM WAITING ADMISSION DETERMINATION FROM [facility] FOR MEDICARE REHAB BED ADMISSION. GURVINDER DOUGLAS CASE MANAGEMENT DCPIA - Discharge Planning Initial Assessment Updated by [id number]: Gurvinder Douglas on 05/09/18 4:37 pm * Is the patient Alert and Oriented? Yes * How many steps to enter\exit or inside your home? * PCP DR. PAT * Pharmacy [facility] [address] * Preadmission Environment Home Alone * ADLs Partial Dependent * Partial ADLs (Assistance needed) Bathing * Equipment Cane Walker * Other Equipment NO MEDICAL EQUIPMENT PROVIDER PREFERENCE * List name and contact numbers for known caregivers / representatives who currently or will assist patient after discharge: MENDYHerbie BERNAL MENDY, MARCELLA MAYEN, FRIEND, * Verbal permission to speak to the caregivers and representatives has been obtained from the patient. Yes * Community resources currently utilized Private Duty Care * Please name any agencies selected above. [facility], AT LEAST THREE DAYS PER WEEK * Additional services required to return to the preadmission environment? Yes * Can the patient safely return to the preadmission environment? Yes * Has this patient been hospitalized within the prior 30 days at any hospital? No Coverage Notice Reviewer: [id number] Douglas Notice Issued Date-Time: 05/09/2018 15:15 Notice Type: IM Discharge Notice Notice Delivered To: Patient Relationship to Patient: Supervisor Intelligence Analyst Name: Delivery Method: HAND - Hand Delivered Margo Days: Prior Verbal Notification: Recipient Understood Notice: Yes Recipient Signature: Yes Med Rec Note Co-signed by Attending: Coverage Notice Comment: Reviewer: ZAN Douglas Notice Issued Date-Time: 05/09/2018 16:25 Notice Type: IM Discharge Notice Notice Delivered To: Family Member Relationship to Patient: Son Supervisor Intelligence Analyst Name: MENDY BERNAL Delivery Method: HAND - Hand Delivered Margo Days: Prior Verbal Notification: Recipient Understood Notice: Yes Recipient Signature: Yes Med Rec Note Co-signed by Attending: Coverage Notice Comment: [facility] Reviewer: [id number] Douglas Notice Issued Date-Time: 05/12/2018 11:55 Notice Type: IM Discharge Notice Notice Delivered To: Patient Relationship to Patient: Supervisor Intelligence Analyst Name: Delivery Method: HAND - Hand Delivered Margo Days: Prior Verbal Notification: Recipient Understood Notice: Yes Recipient Signature: Yes Med Rec Note Co-signed by Attending: Coverage Notice Comment: Last DP export: 05/12/18 11:13 a Patient Name: IDRIS BERNAL Page [id number] at 1221 All edits/amendments must be made on the electronic document DICTATION DATE: 05/12/18 1220 NATURAL RESOURCES PROFESSOR: DM 05/12/18 1220 RPT#: [id number] DC DATE: STATUS: ADM IN [facility] [address] [place] [address] END OF REPORT
--- NOTE | 2018-05-12 13:21 | NUR ---
PT READY FOR DC. CALL[facility]. IV DC'D PT TOLERATE WELL.
--- NOTE | 2018-05-12 13:37 | MORECARE ---
CASE MANAGEMENT DISCHARGE SUMMARY PATIENT: IDRIS BERNAL UNIT: [id number] ADM DATE: 05/06/18 AGE: 88 : 30 SEX: M ROOM/BED: D.8241 AUTHOR: MONICA,DOC PHYSICIAN: REFERRING PHYSICIAN: EDI ANN MD DATE OF SERVICE: 05/12/18 Discharge Plan Patient Name: IDRIS BERNAL Facility[facility]:[place] : 1930 Planned Disposition: Detention Facility Anticipated Discharge Date: 05/12/18 Discharge Date: Expected LOS: 6 Initial Reviewer: ZAN Initial Review Date: 05/09/2018 Generated: 05/12/18 2:37 pm Comments DCP- Discharge Planning Updated by ZAN: Cherelle Douglas on 05/12/18 12:[address] Patient Name: IDRIS BERNAL Encounter No: [id number] : 1930 Primary Insurance: MEDICARE A & B Anticipated DC Date: 05-12-2018 Planned Disposition: Detention Facility External Planned Provider: [facility], MEDICARE REHAB BED DCP follow-up note: CM RECEIVED CALL FROM [facility], ; THEY WILL ACCEPT PT FOR REHAB TODAY. CM NOTIFIED TERESO REID. CM NOTIFIED PT AND SONTASHA, IN ROOM. PT IN AGREEMENT WITH PLAN FOR REHAB ARRANGED BY HIS SON MENDY. IMPORTANT MESSAGE FROM MEDICARE PROVIDED AND EXPLAINED. FOR DISCHARGE, FAX DISCHARGE INFORMATION TO [facility] AT [phone], NURSE REPORT TO BE CALLED TO [facility] AT [phone]. [facility] TO [facility]RANGE [facility] TRANSPORTATION. Cherelle Douglas CASE MANAGEMENT Appended by Cherelle Douglas on 05/12/2018 12:21 CDT: CM RECEIVED CALL FROM [facility], TRANSPORT ARRANGED FOR 2PM TODAY FOR UNIFORM ATTENDANT AND TRANSPORT TO REHAB. POCKET AND PULLEY MACHINE OPERATOR NURSE NOTIFIED. FOR DISCHARGE, FAX DISCHARGE INFORMATION TO [facility] AT [phone], NURSE REPORT TO BE CALLED TO [facility] AT [phone]. [facility] TO [facility] TRANSPORTATION FIR 1400 HOURS TODAY. Cherelle Douglas CASE MANAGEMENT Appended by Cherelle Douglas on 05/12/2018 13:37 CDT: CM FAXED DISCHARGE INFORMATION TO [facility] AT [phone], NURSE REPORT TO BE CALLED TO [facility] AT [phone]. [facility] TO [facility] TRANSPORTATION FIR 1400 HOURS TODAY. Cherelle Douglas CASE MANAGEMENT DCP- Discharge Planning Updated by [id number]: Cherelle Douglas on 05/12/18 9:[address] Patient Name: IDRIS BERNAL Encounter No: [id number] : 1930 Primary Insurance: MEDICARE A & B Anticipated DC Date: 05-12-2018 Planned Disposition: Detention Facility External Planned Provider: [facility], MEDICARE REHAB BED DCP follow-up note: CM RECEIVED CALL FROM [facility], ; THEY ARE REVIEWING PT'S REFERRAL FOR POSSIBLE ADMISSION TODAY. CM FAXED UPDATE TO [facility], . CM WAITING ADMISSION DETERMINATION FOR REHAB FROM [facility]. CURT Vizcarra MANAGEMENT DCP- Discharge Planning Updated by [id number]: Cherelle Douglas on 05/09/18 3:[address] Patient Name: IDRIS BERNAL Admission Status: ER Accout number: [id number] Admission Date: 05-06-2018 : 1930 Admission Diagnosis:SHORTNESS OF BREATH Attending: EDI ANN Current LOS: 3 Anticipated DC Date: Planned Disposition: Home with Home Health OR [facility] Primary Insurance: MEDICARE A & B PLANNED EXTERNAL PROVIDER: TO BE DETERMINED Discharge Planning Comments: CM RECEIVED INPATIENT REHAB PRESCREENING ORDER, SPOKE TO VANDANA OF INPATIENT REHAB WHO INFORMED CM THAT PT IS TOO HIGH FUNCTIONING AND THEY WILL NOT ACCEPT. CM MET WITH PT IN ROOM TO DISCUSS DISCHARGE PLANNING AND NEEDS. PT REPORTS LIVING AT HOME ALONE AND INDEPENDENTLY EXCEPT FOR BATHING FOR WHICH HE HAS CAREGIVERS THREE DAYS PER WEEK THAT ARE PAID PRIVATELY. PT HAS WALKER AND CANE WITH NO MEDICAL EQUIPMENT PROVIDER PREFERNENCE. CM DISCUSSED AVAILABILITY OF HOME HEALTH, [facility] SERVICES AND MEDICAL EQUIPMENT. PT REPORTS HE WANTS TO GO HOME BUT MAY CONSIDER [facility] HE REPORTS STILL BEING TOO WEAK TODAY TO GO HOME. PT WANTS CM TO TALK TO MENDY, HIS SON AND THEY WILL DISCUSS REHAB NEEDS AND LET CM KNOW. PT REPORTS HIS SON OR FRIEND WILL PICK HIM UP FOR DISCHARGE HOME. IMPORTANT MESSAGE FROM MEDICARE PROVIDED AND EXPLAINED. CM PROVIDED AND DISCUSSED PROVIDER LISTINGS FOR [facility] FACILITIES AND HOME HEALTH. CM CALLED MENDY BERNAL AT [phone], SPOKE TO MARCELLA MAYEN WHO INFORMED CM THAT HE THINKS PT WILL NEED REHAB AND WILL HAVE MENDY CALL CM AND THEY WILL PROBABLY BE BACK TO HOSPITAL THIS AFTERNOON TO DISCUSS DISCHARGE NEEDS AND REHAB. CM WAITING PT AND FAMILY TO DECIDE ON [facility] RE[facility]AB OR HOME HEALTH SERVICES. PT DOES NOT QUALIFY FOR INPATIENT REHAB SERVICES. Coach Professional Athletes: Cherelle Douglas Appended by Cherelle Douglas on 05/09/2018 16:40 CDT: CM RECEIVED CALL FROM MENDY BERNAL, PT'S SON, , DISCUSSED REHAB AND HOME HEALTH OPTIONS AND PROVIDERS. MENDY WOULD LIKE PT REFERRED TO [facility] WHERE DR. PAT, PT'S PRIMARY CARE DOCTOR, IS THE CAR BODY INSPECTOR. FAMILY FEELS PT IS WEAK AND NEEDS REHAB PRIOR TO RETURN HOME. CHOICE LETTER COMPLETED. CM NOTIFIED PT WHO IS IN AGREEMENT WITH REHAB REFERRAL. CM CALLED [facility], , SPOKE TO [facility] WHO WILL SCREEN FOR REHAB ADMISSION. CM FAXED REFERRAL TO [facility] AT [phone]. CM WAITING ADMISSION DETERMINATION FROM [facility] AND [facility] FOR MEDICARE REHAB BED ADMISSION. CHERELLE DUOGLAS, CASE MANAGEMENT Appended by Cherelle Douglas on 05/09/2018 16:56 CDT: CM SPOKE TO [facility] WHO INFORMED CM THAT PT HAS [facility] AT HOME AND THEY HAVE REFERRAL FOR HOME HEALTH WHEN PT GOES HOME. CM ADVISED OF PLACEMENT PENDING FOR REHAB AT [facility]. CM WAITING ADMISSION DETERMINATION FROM [facility] FOR MEDICARE REHAB BED ADMISSION. CHERELLE DOUGLAS, CASE MANAGEMENT DCPIA - Discharge Planning Initial Assessment Updated by [id number]: Cherelle Douglas on 05/09/18 4:37 pm * Is the patient Alert and Oriented? Yes * How many steps to enter\exit or inside your home? * PCP DR. PAT * Pharmacy [facility] [address] * Preadmission Environment Home Alone * ADLs Partial Dependent * Partial ADLs (Assistance needed) Bathing * Equipment Cane Walker * Other Equipment NO MEDICAL EQUIPMENT PROVIDER PREFERENCE * List name and contact numbers for known caregivers / representatives who currently or will assist patient after discharge: MENDY GEORGES, MARCELLA FAHEEM KAILEY, * Verbal permission to speak to the caregivers and representatives has been obtained from the patient. Yes * Community resources currently utilized Private Duty Care * Please name any agencies selected above. [facility], AT LEAST THREE DAYS PER WEEK * Additional services required to return to the preadmission environment? Yes * Can the patient safely return to the preadmission environment? Yes * Has this patient been hospitalized within the prior 30 days at any hospital? No Coverage Notice Reviewer: ZAN Douglas Notice Issued Date-Time: 05/09/2018 15:15 Notice Type: IM Discharge Notice Notice Delivered To: Patient Relationship to Patient: Masonry Contractor Administrator Name: Delivery Method: HAND - Hand Delivered Margo Days: Prior Verbal Notification: Recipient Understood Notice: Yes Recipient Signature: Yes Med Rec Note Co-signed by Attending: Coverage Notice Comment: Reviewer: ZAN Douglas Notice Issued Date-Time: 05/09/2018 16:25 Notice Type: IM Discharge Notice Notice Delivered To: Family Member Relationship to Patient: Son Masonry Contractor Administrator Name: MENDY BERNAL Delivery Method: HAND - Hand Delivered Margo Days: Prior Verbal Notification: Recipient Understood Notice: Yes Recipient Signature: Yes Med Rec Note Co-signed by Attending: [facility]age [facility] Reviewer: ZAN Douglas Notice Issued Date-Time: 05/12/2018 11:55 Notice Type: IM Discharge Notice Notice Delivered To: Patient Relationship to Patient: Masonry Contractor Administrator Name: Delivery Method: HAND - Hand Delivered Margo Days: Prior Verbal Notification: Recipient Understood Notice: Yes Recipient Signature: Yes Med Rec Note Co-signed by Attending: Coverage Notice Comment: Last DP export: 05/12/18 11:21 a Patient Name: IDRIS BERNAL Page [id number] at 1337 All edits/amendments must be made on the electronic document DICTATION DATE: 05/12/18 1336 PAPERBOARD MACHINE OPERATOR: [place] 05/12/18 1336 RPT#: [id number] DC DATE: STATUS: ADM IN [facility] [address] [place] [address] END OF REPORT
--- NOTE | 2018-05-12 14:02 | NUR ---
PT TELEMETRY OFF AND RETURNED TO [facility]. DC INSTRUCTION READ TO PT. PT AND SON VERBALIZED UNDERSTANDING. DC PAPERS SENT TO THE REHAB WITH PT. ALL PERSONAL BELONGINGS SENT HOME WITH PT SON. [facility] IS ARRANGED TO PICK PT UP. PT DC'D.
== END 2018-05-12 14:08 | DRG 193 ==
LOC: D.ER 14:34 → D.M2 18:37
PROVIDERS: Family Medicine; ADMIT Internal Medicine Nephrology; ATTEND Internal Medicine Nephrology
DX: J18.1 Lobar pneumonia, unspecified organism (principal); E43 Unspecified severe protein-calorie malnutrition; N17.9 Acute kidney failure, unspecified; Z68.1 Body mass index [BMI] 19.9 or less, adult; K59.00 Constipation, unspecified; D50.9 Iron deficiency anemia, unspecified; I10 Essential (primary) hypertension; E78.5 Hyperlipidemia, unspecified